=== PATIENT | female | born 1955 | race African-American/Black ===

== ENCOUNTER 2016-07-14 00:29 | Emergency (ER) | payer MEDICAID, MEDICARE ==
[~2016-07-14] VITALS: Ht 160 cm; Wt 80.3 kg
[~2016-07-14 00:29] MED LIST: ALPR0.25 PO; AMLO10TA2 PO; ASPI81TA9 PO; ATOR40TA59 PO; Benazepril PO; CARV12.52 PO; CLON0.1T PO; GABA-586 PO; HYDR-971 PO; Hydrochlorothiazide PO; INSU100I13 SQ; INSU100I17 SQ; INSU100V13 SQ; INSU100V5 SQ; LEVO150T5 PO; LISI40TA PO; METF10002 PO; METO25TA4 PO; PANT40TA5 PO; PIOG15TA21 PO; SIMV20TA3 PO; SUCR1TAB29 PO; [UNRECOGNIZED DRUG - OTHER] PO
[2016-07-14 01:01] LABS: BASO % 0 % (0-3); EOS % 2 % (0-3); HEMATOCRIT 36.9 % (36.0-47.0); LYMPH # 3.8 x10^3/uL (1.0-4.8); LYMPH % 35 % (24-48); MEAN CORPUSCULAR HEMOGLOBIN 27 pg (25-35); MEAN CORPUSCULAR HGB CONC 33 g/dL (31-37); MEAN CORPUSCULAR VOLUME 84 fL (79-100); MONO % 6 % (0-9); NEUT % 57 % (31-73); PLATELET COUNT 245 x10^3/uL (140-400); RED BLOOD COUNT 4.38 x10^6/uL (3.50-5.40); RED CELL DISTRIBUTION WIDTH 15.5 % (11.5-14.5); WHITE BLOOD COUNT 10.9 x10^3/uL (4.0-11.0)
[2016-07-14 01:06] VITALS: BP 209/96
--- NOTE | 2016-07-14 01:13 | EKG ---
[facility] [address] [place] [address] Test Date: 2016-07-14 Test Time: 00:56:21 Pat Name: JEFF GREGORY Department: Room: Gender: F Clinical Academic Allergist: : 1955 Requested By: FREDI TONEY Order Number: [id number] Reading MD: Measurements Intervals [place] Rate: 74 P: 54 CT: 124 QRS: 34 QRSD: 86 T: 152 QT: 418 QTc: 464 Interpretive Statements SINUS RHYTHM LVH WITH REPOLARIZATION ABNORMALITY QRS(T) CONTOUR ABNORMALITY CONSIDER ANTEROLATERAL MYOCARDIAL DAMAGE RI6.01 No previous ECG available for comparison
[2016-07-14 01:14] LABS: CREATININE 1.3 mg/dL (0.6-1.0); GFR 50.4; POTASSIUM 3.7 mmol/L (3.5-5.1)
[2016-07-14 01:42] LABS: BILIRUBIN,URINE NEGATIVE (NEG); GLUCOSE,URINE NEGATIVE (NEG); NITRITE,URINE NEGATIVE (NEG); PH,URINE 5.5; PROTEIN,URINE 100 mg/dL (NEG-TRACE)
[2016-07-14] MEDS ORDERED: IOHEXOL 300 MG/ML 75 ML VIAL ONE (01:42)
[2016-07-14] MEDS ORDERED: FENTANYL PF 100 MCG/2 ML VIAL. IV ONE (01:45)
[2016-07-14] MEDS ORDERED: IOHEXOL 300 MG/ML 75 ML VIAL IV ONE (01:45)
[2016-07-14] MEDS ORDERED: CONTRAST GIVEN MC PRN (01:45)
[2016-07-14 01:49] LABS: BACTERIA,URINE FEW /HPF (0-FEW); RBC,URINE OCC /HPF (0-2); SQUAMOUS EPITHELIAL CELL,UR FEW /LPF
--- NOTE | 2016-07-14 02:50 | RAD ---
CT abdomen and pelvis with contrast: Reason for examination: Abdominal pain with nausea and vomiting. Helical images were obtained through the abdomen pelvis with intravenous administration of 60 cc Omnipaque 300. Reconstruction was performed in sagittal and coronal planes. Exposure: One or more of the following individualized dose reduction techniques were used for this examination: 1. Automated exposure control. 2. Adjustment of the mA and/or kV according to patient size. 3. Use of iterative reconstruction technique. There is a calcified granuloma in the right middle lobe. Lung bases are otherwise clear. The heart size is normal with no pericardial effusion. No abnormalities seen at the liver, gallbladder, pancreas, adrenal glands or spleen. The kidneys show no renal masses, renal calculi, hydronephrosis or evidence of obstructive uropathy. No abnormalities seen in the appendix. There is a moderate amount of fecal material throughout the colon. There is no evidence of diverticulosis or diverticulitis. The small intestinal tract shows no abnormally dilated loops of bowel or thickened bowel montoya. No acute abnormalities seen in the stomach there is a large amount of gastric content. The abdominal aorta and inferior vena cava show no acute abnormalities. There is some arteriosclerotic vascular calcification present. No evidence of adenopathy is present. No abnormalities seen in the bladder. There is a calcifying nodule in the uterus consistent with a degenerating fibroid. No adnexal masses are seen. There are multiple calcifications in the pelvis consistent with phleboliths. Postop changes are seen at the L4-5 disc level. Postop changes are seen in the right hip. No acute bony abnormalities are evident. Impression: Calcifying nodule in the uterus consistent with a degenerating fibroid. No acute abnormalities in the abdomen or pelvis. Electronically signed by: Chanelle Grayson MD (Jul 14, 2016 02:47:56)
--- NOTE | 2016-07-14 03:02 | PHYS DOC ---
Past Medical History Past Medical History: Cancer, Diabetes-Type II, Hypertension, Hypothyroid, Other Additional Past Medical Histor: neuropathy, R breast cancer Past Surgical History: Tubal ligation, Other Additional Past Surgical Histo: right mastectomy, back surgery, right hip Alcohol Use: None Drug Use: None Adult General Chief Complaint Chief Complaint: ABDOMINAL PAIN HPI HPI 60-year-old female presents with significant generalized abdominal pain for the last day. She denies any nausea or vomiting. She states she's been able to eat and drink without difficulty. She rates her pain a 5 out of 10 on the pain scale. She denies any chest pain or shortness of breath. She denies any fever or chills. She denies any significant history of abdominal surgery. Patient does have history of hypertension and diabetes. Review of Systems Review of Systems Constitutional: Denies fever or chills [] Eyes: Denies change in visual acuity, redness, or eye pain [] HENT: Denies nasal congestion or sore throat [] Respiratory: Denies cough or shortness of breath [] Cardiovascular: No additional information not addressed in HPI [] GI: Has abdominal pain, denies nausea, denies vomiting, bloody stools or diarrhea [] : Denies dysuria or hematuria [] Musculoskeletal: Denies back pain or joint pain [] Integument: Denies rash or skin lesions [] Neurologic: Denies headache, focal weakness or sensory changes [] Endocrine: Denies polyuria or polydipsia [] Current Medications Current Medications Current Medications Medications (Trade) Dose Ordered Sig/[facility] Start Time Stop Time Status Last Admin Dose Admin Fentanyl Citrate (Fentanyl 2ml Vial) 50 mcg 1X ONCE 07/14/16 01:45 07/14/16 01:46 DC 07/14/16 02:00 50 MCG Info (Do NOT chart on this entry -- for MONITORING) 1 each PRN DAILY PRN 07/14/16 01:45 07/14/16 03:12 DC Iohexol (Omnipaque 300 Mg/ml) 75 ml STK-MED ONCE 07/14/16 01:42 07/14/16 01:43 DC Allergies Allergies Allergies Coded Allergies Type Severity Reaction Last Updated Verified No Known Drug Allergies 12/30/15 No Physical Exam Physical Exam Constitutional: Well developed, well nourished, no acute distress, non-toxic appearance. [] HENT: Normocephalic, atraumatic, bilateral external ears normal, oropharynx moist, no oral exudates, nose normal. [] Eyes: PERRLA, EOMI, conjunctiva normal, no discharge. [] Neck: Normal range of motion, no tenderness, supple, no stridor. [] Cardiovascular:Heart rate regular rhythm, no murmur [] Lungs & Thorax: Bilateral breath sounds clear to auscultation [] Abdomen: Bowel sounds normal, soft, mild generalized abdominal tenderness, no masses, no pulsatile masses. [] Skin: Warm, dry, no erythema, no rash. [] Back: No tenderness, no CVA tenderness. [] Extremities: No tenderness, no cyanosis, no clubbing, ROM intact, no edema. [] Neurologic: Alert and oriented X 3, normal motor function, normal sensory function, no focal deficits noted. [] Psychologic: Affect normal, judgement normal, mood normal. [] Current Patient Data Vital Signs Vital Signs Date Time Temp Pulse Resp B/P Pulse Ox O2 Delivery O2 Flow Rate FiO2 07/14/16 02:00 20 07/14/16 01:06 98.3 81 209/96 99 Room Air 98.3 Lab Values Laboratory Tests Test 07/14/16 00:52 07/14/16 01:29 White Blood Count 10.9x10^3/uL (4.0-11.0) Red Blood Count 4.38x10^6/uL (3.50-5.40) Hemoglobin 12.0g/dL (12.0-15.5) Hematocrit 36.9% (36.0-47.0) Mean Corpuscular Volume 84fL (79-100) Mean Corpuscular Hemoglobin 27pg (25-35) Mean Corpuscular Hemoglobin Concent 33g/dL (31-37) Red Cell Distribution Width 15.5% (11.5-14.5) H Platelet Count 245x10^3/uL (140-400) Neutrophils (%) (Auto) 57% (31-73) Lymphocytes (%) (Auto) 35% (24-48) Monocytes (%) (Auto) 6% (0-9) Eosinophils (%) (Auto) 2% (0-3) Basophils (%) (Auto) 0% (0-3) Neutrophils # (Auto) 6.2x10^3uL (1.8-7.7) Lymphocytes # (Auto) 3.8x10^3/uL (1.0-4.8) Monocytes # (Auto) 0.7x10^3/uL (0.0-1.1) Eosinophils # (Auto) 0.2x10^3/uL (0.0-0.7) Basophils # (Auto) 0.0x10^3/uL (0.0-0.2) Sodium Level 143mmol/L (136-145) Potassium Level 3.7mmol/L (3.5-5.1) Chloride Level 104mmol/L (98-107) Carbon Dioxide Level 27mmol/L (21-32) Anion Gap 12 (6-14) Blood Urea Nitrogen 33mg/dL (7-20) H Creatinine 1.3mg/dL (0.6-1.0) H Estimated GFR (Cockcroft-Gault) 50.4 Glucose Level 100mg/dL (70-99) H Calcium Level 9.0mg/dL (8.5-10.1) Troponin I Quantitative < 0.017ng/mL (0.000-0.055) Lipase 271U/L (73-393) Urine Collection Type Unknown Urine Color Yellow Urine Clarity Clear Urine pH 5.5 Urine Specific Fertile 1.010 Urine Protein 100mg/dL (NEG-TRACE) Urine Glucose (UA) Negativemg/dL (NEG) Urine Ketones (Stick) Negativemg/dL (NEG) Urine Blood Negative (NEG) Urine Nitrite Negative (NEG) Urine Bilirubin Negative (NEG) Urine Urobilinogen Dipstick 1.0mg/dL (0.2 mg/dL) Urine Leukocyte Esterase Negative (NEG) Urine RBC Occ/HPF (0-2) Urine WBC 1-4/HPF (0-4) Urine Squamous Epithelial Cells Few/LPF Urine Bacteria Few/HPF (0-FEW) Urine Hyaline Casts Few/HPF Urine Mucus Slight/LPF Laboratory Tests 07/14/16 00:52 Laboratory Tests 07/14/16 00:52 EKG EKG EKG as interpreted by me shows sinus rhythm with a rate of 74 bpm. There are no obvious ischemic findings though there are some ST segment flattening in 1 and 2 , V5 and V6. EKG does not meet STEMI criteria. Intervals are normal. Radiology/Procedures Radiology/Procedures CT abdomen and pelvis with contrast: Reason for examination: Abdominal pain with nausea and vomiting. Helical images were obtained through the abdomen pelvis with intravenous administration of 60 cc Omnipaque 300. Reconstruction was performed in sagittal and coronal planes. Exposure: One or more of the following individualized dose reduction techniques were used for this examination: 1. Automated exposure control. 2. Adjustment of the mA and/or kV according to patient size. 3. Use of iterative reconstruction technique. There is a calcified granuloma in the right middle lobe. Lung bases are otherwise clear. The heart size is normal with no pericardial effusion. No abnormalities seen at the liver, gallbladder, pancreas, adrenal glands or spleen. The kidneys show no renal masses, renal calculi, hydronephrosis or evidence of obstructive uropathy. No abnormalities seen in the appendix. There is a moderate amount of fecal material throughout the colon. There is no evidence of diverticulosis or diverticulitis. The small intestinal tract shows no abnormally dilated loops of bowel or thickened bowel montoya. No acute abnormalities seen in the stomach there is a large amount of gastric content. The abdominal aorta and inferior vena cava show no acute abnormalities. There is some arteriosclerotic vascular calcification present. No evidence of adenopathy is present. No abnormalities seen in the bladder. There is a calcifying nodule in the uterus consistent with a degenerating fibroid. No adnexal masses are seen. There are multiple calcifications in the pelvis consistent with phleboliths. Postop changes are seen at the L4-5 disc level. Postop changes are seen in the right hip. No acute bony abnormalities are evident. Impression: Calcifying nodule in the uterus consistent with a degenerating fibroid. No acute abnormalities in the abdomen or pelvis. Electronically signed by: Chanelle Grayson MD (Jul 14, 2016 02:47:56) Course & Med Decision Making Course & Med Decision Making Pertinent Labs and Imaging studies reviewed. (See chart for details) This 60-year-old female is having abdominal pain has CT of her abdomen and pelvis is nontender demonstrate an acute cause but did show a degenerating fibroid which could be related to her symptoms. Her laboratory workup was unremarkable. Her pain was well-controlled. I'll be sending her home with close follow-up and pain control. Dragon Disclaimer Dragon Disclaimer This electronic medical record was generated, in whole or in part, using a voice recognition dictation system. Departure Departure Impression: Primary Impression: Abdominal pain Additional Impression: Fibroid Disposition: 01 HOME, SELF-CARE Admitting Physician: Other Condition: STABLE Referrals: PHUC CEDEÑO MD (PCP) Patient Instructions: Abdominal Pain, [id number], Fibroids, [id number] Additional Instructions: Please take your pain medication as needed and follow up closely with your primary doctor in the next 2-3 days for your symptoms. Return to the ER if you develop any worsening of your symptoms. Scripts Hydrocodone/Apap 5-325 ([place] 5-325 Tablet)1 Each Tablet1 Tab PO PRN Q6HRS PRN PAIN #10 TAB Prov:FREDI TONEY DO 07/14/16 Problem Qualifiers FREDI TONEY DO Jul 14, 2016 03:02
[2016-07-14] MEDS ORDERED: HYDR-971 PO (03:06)
== END 2016-07-14 03:12 | disposition home or self-care (01) ==
LOC: ER 00:29
DX: D25.9 Leiomyoma of uterus, unspecified (principal); R10.84 Generalized abdominal pain; E11.40 Type 2 diabetes mellitus with diabetic neuropathy, unspecified; I10 Essential (primary) hypertension; E03.9 Hypothyroidism, unspecified; Z85.3 Personal history of malignant neoplasm of breast; Z98.51 Tubal ligation status
CPT/HCPCS: 36415; 74177; 80048; 81001; 83690; 84484; 85027; 93005; 96374; 99285; J3010; Q9967

== ENCOUNTER → 2016-08-16 | Outpatient (CLI) | payer BC, MEDICARE ==
[~2016-08-16] VITALS: Ht 160 cm; Wt 81.6 kg
[~2016-08-16] MED LIST changes: +SINCALIDE 1.63 MCG in IV NORMAL SALINE 50ML 30 ML IV ONE
--- NOTE | 2016-08-16 13:30 | RAD ---
Radionuclide hepatobiliary scan with gallbladder ejection fraction, 08/16/2016: History: Abdominal pain and bloating Following IV injection of 5.5 mCi of technetium 99m Choletec there was prompt uptake of the radionuclide from the blood stream by the liver. Activity is present in the bile ducts at 10 minutes and in the gallbladder at 15 minutes. Imaging obtained out to one hour showed increasing gallbladder activity without extension into the small bowel. Following IV injection of 5.0 mcg of cholecystokinin there is good gallbladder emptying. The gallbladder ejection fraction is 75%. Activity extends into the small bowel following the cholecystokinin injection. IMPRESSION: 1. No evidence of cystic duct or common bile duct obstruction. 2. The gallbladder ejection fraction is 75%.
== END | disposition home or self-care (01) ==
LOC: NM 10:02
PROVIDERS: ATTEND Internal Medicine Gastroenterology
DX: R10.9 Unspecified abdominal pain (principal); R14.0 Abdominal distension (gaseous)
CPT/HCPCS: 78226; 96374; 96375; A9537; J2805

== ENCOUNTER → 2016-09-21 | Outpatient (CLI) | payer BC, MEDICARE ==
[~2016-09-21] MED LIST changes: +METF-620 PO; -METF10002 PO; -SINCALIDE 1.63 MCG in IV NORMAL SALINE 50ML 30 ML IV ONE
--- NOTE | 2016-09-21 09:45 | RAD ---
Indication abdominal pain for 2 to 3 months. 2 mCi of technetium sulfur colloid was mixed with material simulating a solid meal. The time for half gastric emptying is estimated at approximately 10 hours. This is markedly delayed. IMPRESSION: Marked delay in gastric emptying
== END | disposition home or self-care (01) ==
LOC: NM 07:41
PROVIDERS: ATTEND Internal Medicine Gastroenterology
DX: K30 Functional dyspepsia (principal); E78.00 Pure hypercholesterolemia, unspecified; R93.1 Abnormal findings on diagnostic imaging of heart and coronary circulation
CPT/HCPCS: 78264; A9541

== ENCOUNTER 2017-03-07 08:05 | Emergency (ER) | payer MEDICARE ==
[~2017-03-07] VITALS: Ht 160 cm; Wt 81.2 kg
[~2017-03-07 08:05] MED LIST changes: +ASPI-612 PO; -ASPI81TA9 PO; -PIOG15TA21 PO; +PIOG15TA42 PO; -SUCR1TAB29 PO; +SUCR1TAB35 PO
--- NOTE | 2017-03-07 08:26 | PHYS DOC ---
Past Medical History Past Medical History: Cancer, Diabetes-Type II, Hypertension, Hypothyroid, Other Additional Past Medical Histor: neuropathy, R breast cancer Past Surgical History: Tubal ligation, Other Additional Past Surgical Histo: right mastectomy, back surgery, right hip Alcohol Use: None Drug Use: None Adult General Chief Complaint Chief Complaint: PAIN CONTROL HPI HPI Is a pleasant 61-year-old female with a history of chronic back pain on chronic narcotics for last year presents with back pain after mechanical fall from home. She is initially sustained his injury on Saturday night at her home. She lost her balance leading back twisting on her left flank. Saturday morning she was seen at [facility] ER for an evaluation of her abdominal pain. She had a CAT scan at this time she was told was negative for signs of infection, inflammation, fracture or intra-abdominal injury. Since that time she's had increasing pain over that left flank and her bottom. The pain is described as dull and achy it is worse with range of motion and direct pressure of the abdomen especially over the lower rib series. Patient denies any nausea, vomiting, diarrhea, constipation or other stooling changes. Patient denies any shortness of breath, chest pain, dizziness, lightheadedness especially change in posture standing. Patient pain is moderate in nature not improved with hydrocodone at home. Patient denies any trauma or abuse at home, denies any suicidal or homicidal ideations. She denies any numbness and tingling to the extremities below the injury. Review of Systems Review of Systems Constitutional: Denies fever or chills [] Eyes: Denies change in visual acuity, redness, or eye pain [] HENT: Denies nasal congestion or sore throat [] Respiratory: Denies cough or shortness of breath [] Cardiovascular: No additional information not addressed in HPI [] GI: He has abdominal pain over the left flank but no nausea no vomiting of bloody stools no diarrhea no constipation. : Denies dysuria or hematuria [] Musculoskeletal: Is chronic back pain chronic arthritis no new changes today. Integument: Denies rash or skin lesions [] Neurologic: Denies headache, focal weakness or sensory changes [] All other systems were reviewed and found to be within normal limits, except as documented in this note. Current Medications Current Medications Current Medications Medications (Trade) Dose Ordered Sig/[facility] Start Time Stop Time Status Last Admin Dose Admin Ketorolac Tromethamine (Toradol Im) 60 mg 1X ONCE 03/07/17 08:30 03/07/17 08:41 DC 03/07/17 09:03 60 MG Allergies Allergies Allergies Coded Allergies Type Severity Reaction Last Updated Verified No Known Drug Allergies 12/30/15 No Physical Exam Physical Exam Constitutional: Patient is mildly obese sitting quietly and comfortably although she is in some discomfort she is no acute distress. She is nontoxic in appearance. HENT: Normocephalic, atraumatic, bilateral external ears normal, oropharynx is clear with no oral lesions no bite rosado from a fall. The extremities are dry Eyes: PERRLA, EOMI, conjunctiva normal, no discharge. [] Neck: Normal range of motion, no tenderness, supple, no stridor. [] Cardiovascular:Heart rate regular rhythm, no murmur [] Lungs & Thorax: Bilateral breath sounds clear to auscultation [] Abdomen: She has significant tenderness to palpation over the left flank no external rosado no Owusu Brennan sign no Benz's or McBurney's point tenderness palpation. Patient is some voluntary guarding over her lower ribs with no obvious deformity. There is no evidence of flail chest Skin: Warm, dry, no erythema, no rash. No contusions or ecchymoses noted. No soft tissue swelling Back: She has a well-healed scar in the midline over L4 L5 with no specific tenderness to palpation or redness with warmth. Patient has tenderness to palpation over the sacrum with no obvious signs of trauma no soft tissue swelling. Extremities: No tenderness, no cyanosis, no clubbing, ROM intact, no edema. [] Neurologic: Alert and oriented X 3, normal motor function, normal sensory function, no focal deficits noted. [] Psychologic: Affect normal, judgement normal, mood normal. [] Current Patient Data Vital Signs Vital Signs Date Time Temp Pulse Resp B/P (MAP) Pulse Ox O2 Delivery O2 Flow Rate FiO2 03/07/17 08:30 97.8 83 22 196/92 (126) 98 Room Air 97.8 EKG EKG [] Radiology/Procedures Radiology/Procedures [] IMAGING REPORT Signed PATIENT: JEFF GREGORY ACCOUNT: [id number] : 1955 LOCATION: ER AGE: 61 SEX: F EXAM [id number] STATUS: PRE ER ORD. PHYSICIAN: ABRAHAM CAMARA MD REASON: fall from standing PROCEDURE: LUMBAR SPINE 2-3V; SACRUM & COCCYX 3V Lumbar spine, 3 views, 03/07/2017: History: Fall, pain Radiopaque disc spacers are present at the L4-5 level. There is moderate marginal spurring at that level. There is a mild chronic spondylolisthesis at L4-5, unchanged since CT images of 07/14/2016. The lumbar vertebral heights are well-maintained. There are additional scattered spurs in the upper lumbar spine. There are moderate degenerative changes involving the facet joints in the lower lumbar spine. No acute fracture is identified. Aortic calcific plaquing is present. IMPRESSION: 1. Postsurgical changes at L4-5 with a mild chronic spondylolisthesis. 2. Moderate scattered degenerative changes. 3. No acute lumbar spine abnormality is detected. Sacrococcygeal spine, 2 views, 03/07/2017: No fracture is identified. The presacral soft tissues are unremarkable. IMPRESSION: No acute bony abnormality is detected. DICTATED and SIGNED BY: SARAH DAVIS MD DATE: 03/07/17857 CC: ABARHAM CAMARA MD; PHUC CEDEÑO MD ~ Signed PATIENT: JEFF GREGORY ACCOUNT: [id number] : 1955 LOCATION: ER AGE: 61 SEX: F EXAM STATUS: REG ER ORD. PHYSICIAN: ABRAHAM CAMARA MD REASON: fall from standing PROCEDURE: RIBS LEFT AND PA CHEST PA chest and left rib series 03/07/2017 Clinical indication: Fall from standing. Comparison: Chest 12/28/2015 Findings: Cardiac and mediastinal silhouettes are unremarkable. Ovoid peripheral calcific density in the right upper lung likely related to dystrophic calcification. No pleural effusion, pneumothorax or focal consolidation. No acute displaced left rib fracture deformity identified. Impression: 1. No acute cardiopulmonary abnormality. 2. No acute displaced left rib fracture identified. DICTATED and SIGNED BY: JONA ZHOU MD DATE: 03/07/17858 CC: ABRAHAM CAMARA MD; PHUC CEDEÑO MD ~ Course & Med Decision Making Course & Med Decision Making Pertinent Labs and Imaging studies reviewed. (See chart for details) []She presents with a mechanical fall. I will attempt to obtain CT results from [facility] she had completed 2 days ago. Patient is resting comfortably I offered Toradol IM because she is driving home I did not feel comfortable having her use narcotics and driving her vehicle. Patient will also have a rib series completed and a sacral series completed to ensure that there is no sacral fracture no injury to her left ribs. Patient's rib series, sacral series and coccyx series of been reviewed by me read by radiology demonstrated no occult fracture no foreign body noted in the soft tissues. Time is now 9:45 AM patient presents with contusions to the hip and ribs with no obvious signs of fracture. She is feeling improved with Toradol IM she'll be sent home with Motrin and a muscle relaxant. Dragon Disclaimer Dragon Disclaimer This electronic medical record was generated, in whole or in part, using a voice recognition dictation system. Departure Departure Impression: Primary Impression: Abdominal pain Additional Impressions: HTN (hypertension) Rib contusion Sacral contusion Disposition: 01 HOME, SELF-CARE Condition: IMPROVED Referrals: PHUC CEDEÑO MD (PCP) Patient Instructions: Contusion, Rib Contusion Additional Instructions: discharge: I've spoken with the patient and/or caregivers. I've explained the patient's condition, diagnosis and treatment plan based on information available to me at this time. I've answered the patient's and/or caregivers questions and addressed any concerns. The patient and/or caregivers have a good understanding the patient's diagnosis, condition and treatment plan as can be expected at this point. Vital signs have been stabilized. The patient's condition is stable for discharge from the emergency department. The patient will pursue further outpatient evaluation with her primary care provider or other designated consulting physician as outlined in the discharge instructions. Patient and/or caregivers are agreeable to this plan of care and follow-up instructions have been explained in detail. The patient and/or caregivers have received these instructions in written format and expressed understanding of these discharge instructions. The patient and her caregivers are aware that if any significant change in condition or worsening of symptoms should prompt him to immediately return to this of the closest emergency department. If an emergent department is not readily available I would encourage him to call 911. Scripts Diazepam (VALIUM) 5 Mg Tablet 5 MG PO TID for MUSCLE SPASMS for 5 Days, #15 TAB Prov: ABRAHAM CAMARA MD 03/07/17 Ibuprofen (IBUPROFEN) 400 Mg Tablet 400 MG PO PRN Q6HRS Y for INFLAMMATION for 10 Days, TAB Prov: ABRAHAM CAMARA MD 03/07/17 Problem Qualifiers ABRAHAM CAMARA MD Mar 07, 2017 08:26
[2017-03-07] MEDS ORDERED: KETOROLAC 60 MG/2 ML INJ. IM ONE (08:30)
--- NOTE | 2017-03-07 09:06 | RAD ---
Lumbar spine, 3 views, 03/07/2017: History: Fall, pain Radiopaque disc spacers are present at the L4-5 level. There is moderate marginal spurring at that level. There is a mild chronic spondylolisthesis at L4-5, unchanged since CT images of 07/14/2016. The lumbar vertebral heights are well-maintained. There are additional scattered spurs in the upper lumbar spine. There are moderate degenerative changes involving the facet joints in the lower lumbar spine. No acute fracture is identified. Aortic calcific plaquing is present. IMPRESSION: 1. Postsurgical changes at L4-5 with a mild chronic spondylolisthesis. 2. Moderate scattered degenerative changes. 3. No acute lumbar spine abnormality is detected. Sacrococcygeal spine, 2 views, 03/07/2017: No fracture is identified. The presacral soft tissues are unremarkable. IMPRESSION: No acute bony abnormality is detected.
--- NOTE | 2017-03-07 09:07 | RAD ---
PA chest and left rib series 03/07/2017 Clinical indication: Fall from standing. Comparison: Chest 12/28/2015 Findings: Cardiac and mediastinal silhouettes are unremarkable. Ovoid peripheral calcific density in the right upper lung likely related to dystrophic calcification. No pleural effusion, pneumothorax or focal consolidation. No acute displaced left rib fracture deformity identified. Impression: 1. No acute cardiopulmonary abnormality. 2. No acute displaced left rib fracture identified.
[2017-03-07 09:30] VITALS: BP 169/87
[2017-03-07] MEDS ORDERED: DIAZ5TAB PO (09:49)
[2017-03-07] MEDS ORDERED: IBUP-1027 PO (09:49)
== END 2017-03-07 09:59 | disposition home or self-care (01) ==
LOC: ER 08:05
DX: S20.219A Contusion of unspecified front wall of thorax, initial encounter (principal); S30.0XXA Contusion of lower back and pelvis, initial encounter; S70.00XA Contusion of unspecified hip, initial encounter; I10 Essential (primary) hypertension; R10.9 Unspecified abdominal pain; E03.9 Hypothyroidism, unspecified; E11.40 Type 2 diabetes mellitus with diabetic neuropathy, unspecified; Z98.51 Tubal ligation status; G89.29 Other chronic pain; W18.30XA Fall on same level, unspecified, initial encounter; Y93.89 Activity, other specified; Y99.8 Other external cause status; Y92.89 Other specified places as the place of occurrence of the external cause
CPT/HCPCS: 71101; 72100; 72220; 96372; 99284; J1885

== ENCOUNTER 2017-09-18 15:23 | Inpatient (IN) | payer OTHER, MEDICARE ==
[2017-09-18] MEDS: IV NORMAL SALINE 1000ML BAG 1,000 ML IV ×2 (15:55→21:11)
[2017-09-18 16:05] LABS: ADD MAN DIFF? NO; BASO % 0 % (0-3); EOS # 0.2 x10^3/uL (0.0-0.7); EOS % 2 % (0-3); HEMATOCRIT 33.3 % (36.0-47.0); HEMOGLOBIN 11.5 g/dL (12.0-15.5); LYMPH # 3.5 x10^3/uL (1.0-4.8); LYMPH % 38 % (24-48); MEAN CORPUSCULAR HEMOGLOBIN 29 pg (25-35); MEAN CORPUSCULAR HGB CONC 35 g/dL (31-37); MEAN CORPUSCULAR VOLUME 85 fL (79-100); MONO # 0.7 x10^3/uL (0.0-1.1); MONO % 8 % (0-9); NEUT # 4.8 x10^3uL (1.8-7.7); NEUT % 52 % (31-73); PLATELET COUNT 225 x10^3/uL (140-400); RED BLOOD COUNT 3.93 x10^6/uL (3.50-5.40); RED CELL DISTRIBUTION WIDTH 14.9 % (11.5-14.5); WHITE BLOOD COUNT 9.3 x10^3/uL (4.0-11.0)
[2017-09-18 16:23] LABS: ANION GAP 10 (6-14); BLOOD UREA NITROGEN 52 mg/dL (7-20); BUN/CREATININE RATIO 25 (6-20); CALCIUM 8.4 mg/dL (8.5-10.1); CARBON DIOXIDE 27 mmol/L (21-32); CHLORIDE 108 mmol/L (98-107); CREATININE 2.1 mg/dL (0.6-1.0); GFR 28.9; GLUCOSE 96 mg/dL (70-99); POTASSIUM 3.9 mmol/L (3.5-5.1); SODIUM 145 mmol/L (136-145)
[2017-09-18 16:30] LABS: ALBUMIN 2.8 g/dL (3.4-5.0); ALBUMIN/GLOBULIN RATIO 0.7 (1.0-1.7); ALK PHOS 101 U/L (46-116); ALT (SGPT) 16 U/L (14-59); MAGNESIUM 2.4 mg/dL (1.8-2.4); TOTAL BILIRUBIN 0.2 mg/dL (0.2-1.0); TOTAL PROTEIN 6.8 g/dL (6.4-8.2)
[2017-09-18 16:31] LABS: TROPONINI < 0.017 ng/mL (0.000-0.055)
[2017-09-18 16:36] LABS: CKMB INDEX 0.8 % (0-4); CKMB MASS 1.1 ng/mL (0.0-3.6); CREATINE KINASE 139 U/L (26-192)
[2017-09-18 16:59] LABS: AST (SGOT) 19 U/L (15-37)
[2017-09-18] MEDS ORDERED: ONDANSETRON PF 4 MG/2 ML VIAL. IV (19:45)
[2017-09-18 19:55] LABS: ANION GAP 10 (6-14); BLOOD UREA NITROGEN 48 mg/dL (7-20); CALCIUM 7.8 mg/dL (8.5-10.1); CARBON DIOXIDE 26 mmol/L (21-32); CHLORIDE 109 mmol/L (98-107); CREATININE 1.9 mg/dL (0.6-1.0); GFR 32.4; GLUCOSE 151 mg/dL (70-99); POTASSIUM 3.9 mmol/L (3.5-5.1); SODIUM 145 mmol/L (136-145)
[2017-09-18] MEDS ORDERED: ALPRAZolam 0.25 MG TABLET PO (20:15)
[2017-09-18] MEDS ORDERED: HYDROcodone/APAP 5/325MG 1 TAB TABLET PO (20:15)
[2017-09-18] MEDS: CARVEDILOL 12.5 MG TABLET. PO ×2 (20:30→22:52)
[2017-09-18 20:53] LABS: POC GLUCOSE 136 mg/dL (70-99)
[2017-09-18] MEDS ORDERED: HYDROcodone/APAP 10/325 1 TAB TABLET PO (22:30)
[2017-09-18 22:52] LABS: POC GLUCOSE 219 mg/dL (70-99)
[2017-09-18] MEDS: diazePAM 5 MG TABLET PO (22:52)
[2017-09-18] MEDS: ATORVASTATIN CALCIUM 40 MG TABLET. PO (22:52)
[2017-09-18] MEDS: GABAPENTIN 300 MG CAPSULE. PO (22:52)
[2017-09-18] MEDS: INSULIN GLARGINE 300 UNITS/3 ML INSULN.PEN. SQ (23:00)
[2017-09-19] MEDS ORDERED: LEVOTHYROXINE 150 MCG TABLET PO (07:00)
[2017-09-19] MEDS ORDERED: INSULIN ASPART 24 UNIT SQ (07:30)
[2017-09-19] MEDS ORDERED: ASPIRIN ENTERIC COATED 81 MG TABLET.DR. PO (08:00)
[2017-09-19 08:28] LABS: POC GLUCOSE 214 mg/dL (70-99)
[2017-09-19] MEDS ORDERED: amLODIPine BESYLATE 10 MG TABLET PO (09:00)
[2017-09-19] MEDS: GABAPENTIN 300 MG CAPSULE. PO (09:00)
[2017-09-19] MEDS: IV NORMAL SALINE 1000ML BAG 1,000 ML IV ×2 (09:48→23:09)
[2017-09-19 09:50] LABS: FREE T4 0.87 ng/dL (0.76-1.46)
[2017-09-19 09:50] LABS: THYROID STIM HORMONE (TSH) 3.647 uIU/mL (0.358-3.74)
[2017-09-19] MEDS: cloNIDine HCL 0.1 MG TABLET PO (09:58)
[2017-09-19] MEDS: CHLORTHALIDONE 25 MG TABLET. PO (09:58)
[2017-09-19] MEDS: PANTOPRAZOLE 40 MG TABLET.DR. PO (09:58)
[2017-09-19] MEDS: PREGABALIN 25 MG CAPSULE PO ×3 (09:59→21:00)
[2017-09-19] MEDS: CARVEDILOL 12.5 MG TABLET. PO ×2 (09:59→16:01)
[2017-09-19] MEDS: diazePAM 5 MG TABLET PO ×3 (09:59→21:08)
[2017-09-19] MEDS: LEVOTHYROXINE 150 MCG TABLET PO (10:00)
[2017-09-19] MEDS: amLODIPine BESYLATE 10 MG TABLET PO (10:00)
[2017-09-19] MEDS: LINAGLIPTIN 5 MG TABLET PO (10:00)
[2017-09-19] MEDS: INSULIN LISPRO 300 UNITS/3 ML INSULN.PEN. SQ ×3 (10:04→16:01)
[2017-09-19 11:37] LABS: POC GLUCOSE 174 mg/dL (70-99)
[2017-09-19 14:03] LABS: ALBUMIN 2.6 g/dL (3.4-5.0); ANION GAP 9 (6-14); BLOOD UREA NITROGEN 37 mg/dL (7-20); CALCIUM 7.8 mg/dL (8.5-10.1); CARBON DIOXIDE 25 mmol/L (21-32); CHLORIDE 108 mmol/L (98-107); CREATININE 1.6 mg/dL (0.6-1.0); GFR 39.5; GLUCOSE 72 mg/dL (70-99); PHOSPHORUS 2.7 mg/dL (2.6-4.7); POTASSIUM 3.5 mmol/L (3.5-5.1); SODIUM 142 mmol/L (136-145)
[2017-09-19 16:40] LABS: POC GLUCOSE 56 mg/dL (70-99)
[2017-09-19] MEDS: DEXTROSE 50% 25 GM / 50ML DISP.SYRIN. IV (16:41)
[2017-09-19 16:49] LABS: POC GLUCOSE 148 mg/dL (70-99)
[2017-09-19 19:57] LABS: VITAMIN-B12 295 pg/mL (247-911)
[2017-09-19 20:57] LABS: POC GLUCOSE 152 mg/dL (70-99)
[2017-09-19] MEDS: ATORVASTATIN CALCIUM 40 MG TABLET. PO (21:08)
[2017-09-19] MEDS: QUEtiapine 25 MG TABLET. PO (21:09)
[2017-09-19] MEDS: INSULIN GLARGINE 300 UNITS/3 ML INSULN.PEN. SQ (21:20)
[2017-09-20 05:39] LABS: ANION GAP 10 (6-14); BLOOD UREA NITROGEN 35 mg/dL (7-20); CALCIUM 8.2 mg/dL (8.5-10.1); CARBON DIOXIDE 24 mmol/L (21-32); CHLORIDE 107 mmol/L (98-107); CREATININE 1.6 mg/dL (0.6-1.0); GFR 39.5; GLUCOSE 273 mg/dL (70-99); POTASSIUM 3.7 mmol/L (3.5-5.1); SODIUM 141 mmol/L (136-145)
[2017-09-20 05:51] LABS: CHOLESTEROL 205 mg/dL (0-200); HDLC 35 mg/dL (40-60); LDLC 101 mg/dL (0-100); NON-HDL CHOLESTEROL 170 mg/dL (0-129); TRIGLYCERIDES 345 mg/dL (0-150); VLDLC 69 mg/dL (0-40)
[2017-09-20 05:53] LABS: CHOLESTEROL/HDL RATIO 5.9
[2017-09-20] MEDS: LEVOTHYROXINE 150 MCG TABLET PO (06:08)
[2017-09-20 07:41] LABS: POC GLUCOSE 202 mg/dL (70-99)
[2017-09-20] MEDS: PANTOPRAZOLE 40 MG TABLET.DR. PO (08:14)
[2017-09-20] MEDS: cloNIDine HCL 0.1 MG TABLET PO (08:14)
[2017-09-20] MEDS: CHLORTHALIDONE 25 MG TABLET. PO (08:15)
[2017-09-20] MEDS: amLODIPine BESYLATE 10 MG TABLET PO (08:15)
[2017-09-20] MEDS: LINAGLIPTIN 5 MG TABLET PO (08:15)
[2017-09-20] MEDS: diazePAM 5 MG TABLET PO ×3 (08:15→20:47)
[2017-09-20] MEDS: PREGABALIN 25 MG CAPSULE PO ×3 (08:16→20:47)
[2017-09-20] MEDS: CARVEDILOL 12.5 MG TABLET. PO ×2 (08:16→17:29)
[2017-09-20 08:22] LABS: VITAMIN-B12 299 pg/mL (247-911)
[2017-09-20] MEDS: INSULIN LISPRO 300 UNITS/3 ML INSULN.PEN. SQ ×3 (08:22→17:00)
[2017-09-20] MEDS: IV NORMAL SALINE 1000ML BAG 1,000 ML IV (10:48)
[2017-09-20 11:40] LABS: POC GLUCOSE 69 mg/dL (70-99)
[2017-09-20 11:49] LABS: POC GLUCOSE 62 mg/dL (70-99)
[2017-09-20 12:23] LABS: POC GLUCOSE 48 mg/dL (70-99)
[2017-09-20] MEDS: DEXTROSE 50% 25 GM / 50ML DISP.SYRIN. IV (12:26)
[2017-09-20 12:43] LABS: POC GLUCOSE 158 mg/dL (70-99)
[2017-09-20 16:25] LABS: POC GLUCOSE 127 mg/dL (70-99)
[2017-09-20] MEDS: CALCIUM CARBONATE 500 MG TABLET PO (17:28)
[2017-09-20] MEDS: CHOLECALCIFEROL (VITAMIN D3) 5,000 UNIT CAPSULE PO (17:29)
[2017-09-20 20:28] LABS: POC GLUCOSE 156 mg/dL (70-99)
[2017-09-20] MEDS: QUEtiapine 25 MG TABLET. PO (20:47)
[2017-09-20] MEDS: ATORVASTATIN CALCIUM 40 MG TABLET. PO (20:47)
[2017-09-20] MEDS: INSULIN GLARGINE 300 UNITS/3 ML INSULN.PEN. SQ (20:53)
[2017-09-21] MEDS: IV NORMAL SALINE 1000ML BAG 1,000 ML IV ×2 (02:20→13:27)
[2017-09-21] MEDS: LEVOTHYROXINE 150 MCG TABLET PO (07:00)
[2017-09-21] MEDS: INSULIN LISPRO 300 UNITS/3 ML INSULN.PEN. SQ ×3 (08:00→17:00)
[2017-09-21 08:06] LABS: POC GLUCOSE 123 mg/dL (70-99)
[2017-09-21] MEDS: PANTOPRAZOLE 40 MG TABLET.DR. PO (08:33)
[2017-09-21] MEDS: amLODIPine BESYLATE 10 MG TABLET PO (08:33)
[2017-09-21] MEDS: cloNIDine HCL 0.1 MG TABLET PO (08:33)
[2017-09-21] MEDS: CALCIUM CARBONATE 500 MG TABLET PO (08:33)
[2017-09-21] MEDS: CHLORTHALIDONE 25 MG TABLET. PO (08:33)
[2017-09-21] MEDS: CHOLECALCIFEROL (VITAMIN D3) 5,000 UNIT CAPSULE PO (08:33)
[2017-09-21] MEDS: LINAGLIPTIN 5 MG TABLET PO (08:34)
[2017-09-21] MEDS: diazePAM 5 MG TABLET PO ×2 (08:34→13:28)
[2017-09-21] MEDS: CARVEDILOL 12.5 MG TABLET. PO ×2 (08:34→17:16)
[2017-09-21] MEDS: PREGABALIN 25 MG CAPSULE PO ×4 (08:34→22:36)
[2017-09-21 11:13] LABS: POC GLUCOSE 126 mg/dL (70-99)
[2017-09-21] MEDS: diazePAM 2 MG TABLET PO ×2 (16:30→21:00)
[2017-09-21] MEDS: metFORMIN 500 MG TABLET PO (17:16)
[2017-09-21] MEDS: ONDANSETRON PF 4 MG/2 ML VIAL. IV (20:43)
[2017-09-21] MEDS: ATORVASTATIN CALCIUM 40 MG TABLET. PO (21:00)
[2017-09-21] MEDS: QUEtiapine 25 MG TABLET. PO ×2 (21:00→22:36)
[2017-09-21] MEDS: OMEGA-3 FATTY ACIDS/FISH OIL 1,000 MG CAPSULE. PO (21:00)
[2017-09-21 21:21] LABS: POC GLUCOSE 128 mg/dL (70-99)
[2017-09-21 21:26] LABS: POC GLUCOSE 152 mg/dL (70-99)
[2017-09-21] MEDS: INSULIN GLARGINE 300 UNITS/3 ML INSULN.PEN. SQ (21:29)
[2017-09-22] MEDS: IV NORMAL SALINE 1000ML BAG 1,000 ML IV (02:40)
[2017-09-22] MEDS: PANTOPRAZOLE 40 MG TABLET.DR. PO (06:06)
[2017-09-22] MEDS: LEVOTHYROXINE 150 MCG TABLET PO (06:06)
[2017-09-22] MEDS: INSULIN LISPRO 300 UNITS/3 ML INSULN.PEN. SQ ×2 (08:00→12:00)
[2017-09-22 08:15] LABS: POC GLUCOSE 121 mg/dL (70-99)
[2017-09-22] MEDS: CALCIUM CARBONATE 500 MG TABLET PO (08:33)
[2017-09-22] MEDS: OMEGA-3 FATTY ACIDS/FISH OIL 1,000 MG CAPSULE. PO (08:33)
[2017-09-22] MEDS: CARVEDILOL 12.5 MG TABLET. PO (08:33)
[2017-09-22] MEDS: CHOLECALCIFEROL (VITAMIN D3) 5,000 UNIT CAPSULE PO (08:33)
[2017-09-22] MEDS: CHLORTHALIDONE 25 MG TABLET. PO (08:33)
[2017-09-22] MEDS: metFORMIN 500 MG TABLET PO (08:33)
[2017-09-22] MEDS: cloNIDine HCL 0.1 MG TABLET PO (08:33)
[2017-09-22] MEDS: amLODIPine BESYLATE 10 MG TABLET PO (08:34)
[2017-09-22] MEDS: diazePAM 2 MG TABLET PO ×2 (08:34→14:00)
[2017-09-22] MEDS: PREGABALIN 25 MG CAPSULE PO (08:41)
[2017-09-22 11:56] LABS: POC GLUCOSE 134 mg/dL (70-99)
[2017-09-25] MEDS ORDERED: ERGOCALCIFEROL (VITAMIN D2) 50,000 UNIT CAPSULE. PO (09:00)
== END 2017-09-22 14:50 | disposition home or self-care (01) | DRG 682 ==
LOC: ER 15:23 → 5 NORTH 18:59
DX: N17.9 Acute kidney failure, unspecified (principal); G93.41 Metabolic encephalopathy; E11.22 Type 2 diabetes mellitus with diabetic chronic kidney disease; E11.42 Type 2 diabetes mellitus with diabetic polyneuropathy; E11.649 Type 2 diabetes mellitus with hypoglycemia without coma; E11.65 Type 2 diabetes mellitus with hyperglycemia; D63.1 Anemia in chronic kidney disease; E03.9 Hypothyroidism, unspecified; E66.9 Obesity, unspecified; E78.5 Hyperlipidemia, unspecified; E83.51 Hypocalcemia; G89.29 Other chronic pain; I12.9 Hypertensive chronic kidney disease with stage 1 through stage 4 chronic kidney disease, or unspecified chronic kidney disease; M17.0 Bilateral primary osteoarthritis of knee; N18.9 Chronic kidney disease, unspecified; M19.90 Unspecified osteoarthritis, unspecified site; M54.5 Low back pain; Z68.31 Body mass index [BMI] 31.0-31.9, adult; Z79.4 Long term (current) use of insulin; Z80.3 Family history of malignant neoplasm of breast; Z82.3 Family history of stroke; Z82.49 Family history of ischemic heart disease and other diseases of the circulatory system; Z85.3 Personal history of malignant neoplasm of breast; Z90.11 Acquired absence of right breast and nipple; Z91.14 Patient's other noncompliance with medication regimen; Z92.21 Personal history of antineoplastic chemotherapy; Z92.3 Personal history of irradiation; Z98.51 Tubal ligation status
CPT/HCPCS: 36415; 70450; 71045; 76770; 80048; 80053; 80061; 80069; 82306; 82553; 82607; 82962; 83735; 84439; 84443; 84484; 85025; 93005; 93975; 95816; 96360; 97116-GP; 97162-GP; 97165-GO; 97530-GP; 97535-GO; 99285; 99285-25; J1815; J2405; J7030; J7042

== ENCOUNTER 2017-09-24 12:56 | Inpatient (IN) | payer OTHER ==
[2017-09-24 13:37] LABS: ADD MAN DIFF? NO
[2017-09-24 13:38] LABS: BASO # 0.1 x10^3/uL (0.0-0.2); BASO % 1 % (0-3); EOS # 0.2 x10^3/uL (0.0-0.7); EOS % 2 % (0-3); HEMATOCRIT 33.2 % (36.0-47.0); HEMOGLOBIN 11.2 g/dL (12.0-15.5); LYMPH # 3.3 x10^3/uL (1.0-4.8); LYMPH % 29 % (24-48); MEAN CORPUSCULAR HEMOGLOBIN 28 pg (25-35); MEAN CORPUSCULAR HGB CONC 34 g/dL (31-37); MEAN CORPUSCULAR VOLUME 84 fL (79-100); MONO # 0.7 x10^3/uL (0.0-1.1); MONO % 6 % (0-9); NEUT # 7.2 x10^3uL (1.8-7.7); NEUT % 63 % (31-73); PLATELET COUNT 253 x10^3/uL (140-400); RED BLOOD COUNT 3.97 x10^6/uL (3.50-5.40); RED CELL DISTRIBUTION WIDTH 15.4 % (11.5-14.5); WHITE BLOOD COUNT 11.5 x10^3/uL (4.0-11.0)
[2017-09-24 13:39] LABS: AGAP ISTAT 17 mmol/L (6-14); BUN ISTAT 25 mg/dL (8-26); CHLORIDE ISTAT 105 mmol/L (98-110); CREATININE ISTAT 1.6 mg/dL (0.5-1.4); GLUCOSE ISTAT 47 mg/dL (70-99); HEMATOCRIT ISTAT 31 % (36-40); HEMOGLOBIN ISTAT 10.5 g/dL (12-15); ION CA ISTAT 1.23 mmol/L (1.13-1.32); POTASSIUM ISTAT 3.5 mmol/L (3.5-5.0); SODIUM ISTAT 144 mmol/L (135-145); TOT CO2 ISTAT 27 mmol/L (23-32)
[2017-09-24 13:48] LABS: ANION GAP 9 (6-14); BLOOD UREA NITROGEN 26 mg/dL (7-20); BUN/CREATININE RATIO 15 (6-20); CALCIUM 9.1 mg/dL (8.5-10.1); CARBON DIOXIDE 29 mmol/L (21-32); CHLORIDE 106 mmol/L (98-107); CREATININE 1.7 mg/dL (0.6-1.0); GFR 36.8; GLUCOSE 50 mg/dL (70-99); INR 1.1 (0.8-1.1); PARTIAL THROMBOPLASTIN TIME 40 SEC (24-38); POTASSIUM 3.5 mmol/L (3.5-5.1); SODIUM 144 mmol/L (136-145)
[2017-09-24 13:54] LABS: ALBUMIN 3.1 g/dL (3.4-5.0); ALBUMIN/GLOBULIN RATIO 0.7 (1.0-1.7); ALK PHOS 112 U/L (46-116); ALT (SGPT) 15 U/L (14-59); AST (SGOT) 16 U/L (15-37); TOTAL BILIRUBIN 0.3 mg/dL (0.2-1.0); TOTAL PROTEIN 7.3 g/dL (6.4-8.2)
[2017-09-24 13:56] LABS: TROPONINI < 0.017 ng/mL (0.000-0.055)
[2017-09-24] MEDS ORDERED: DEXTROSE 50% 25 GM / 50ML DISP.SYRIN. IV (13:57)
[2017-09-24] MEDS: ASPIRIN 325 MG TABLET PO (14:02)
[2017-09-24 14:04] LABS: CKMB MASS 0.7 ng/mL (0.0-3.6); CREATINE KINASE 71 U/L (26-192)
[2017-09-24] MEDS: DEXTROSE 50% 25 GM / 50ML DISP.SYRIN. IV (14:04)
[2017-09-24] MEDS ORDERED: fentaNYL PF VIAL 100 MCG/2 ML VIAL IV (14:15)
[2017-09-24] MEDS ORDERED: ONDANSETRON PF 4 MG/2 ML VIAL. IV (14:15)
[2017-09-24 14:24] LABS: POC GLUCOSE 157 mg/dL (70-99)
[2017-09-24] MEDS: ACETAMINOPHEN 325 MG TABLET. PO (15:17)
[2017-09-24] MEDS ORDERED: ALPRAZolam 0.25 MG TABLET PO (17:45)
[2017-09-24] MEDS ORDERED: HYDROcodone/APAP 10/325 1 TAB TABLET PO (18:00)
[2017-09-24] MEDS: CARVEDILOL 12.5 MG TABLET. PO (18:09)
[2017-09-24 20:30] LABS: POC GLUCOSE 110 mg/dL (70-99)
[2017-09-24 20:44] LABS: TROPONINI < 0.017 ng/mL (0.000-0.055)
[2017-09-24] MEDS: ATORVASTATIN CALCIUM 40 MG TABLET. PO (21:32)
[2017-09-24] MEDS: cloNIDine HCL 0.1 MG TABLET PO (21:33)
[2017-09-24] MEDS: OMEGA-3 FATTY ACIDS/FISH OIL 1,000 MG CAPSULE. PO (21:33)
[2017-09-24] MEDS: ENOXAPARIN 40 MG/0.4 ML SYRINGE. SQ (21:34)
[2017-09-24] MEDS: QUEtiapine 25 MG TABLET. PO (21:34)
[2017-09-24] MEDS: PREGABALIN 25 MG CAPSULE PO (21:34)
[2017-09-24] MEDS: INSULIN GLARGINE 300 UNITS/3 ML INSULN.PEN. SQ (21:47)
[2017-09-25 05:31] LABS: ADD MAN DIFF? NO
[2017-09-25 05:49] LABS: BASO # 0.1 x10^3/uL (0.0-0.2); BASO % 1 % (0-3); EOS # 0.2 x10^3/uL (0.0-0.7); EOS % 2 % (0-3); HEMATOCRIT 30.3 % (36.0-47.0); HEMOGLOBIN 10.4 g/dL (12.0-15.5); LYMPH # 3.5 x10^3/uL (1.0-4.8); LYMPH % 39 % (24-48); MEAN CORPUSCULAR HEMOGLOBIN 29 pg (25-35); MEAN CORPUSCULAR HGB CONC 34 g/dL (31-37); MEAN CORPUSCULAR VOLUME 84 fL (79-100); MONO # 0.5 x10^3/uL (0.0-1.1); MONO % 6 % (0-9); NEUT # 4.8 x10^3uL (1.8-7.7); NEUT % 53 % (31-73); PLATELET COUNT 209 x10^3/uL (140-400); RED BLOOD COUNT 3.62 x10^6/uL (3.50-5.40); RED CELL DISTRIBUTION WIDTH 15.2 % (11.5-14.5); WHITE BLOOD COUNT 9.1 x10^3/uL (4.0-11.0)
[2017-09-25 06:02] LABS: ALBUMIN 2.6 g/dL (3.4-5.0); TOTAL PROTEIN 6.3 g/dL (6.4-8.2)
[2017-09-25 06:03] LABS: ALBUMIN/GLOBULIN RATIO 0.7 (1.0-1.7); ALK PHOS 103 U/L (46-116); ALT (SGPT) 14 U/L (14-59); ANION GAP 13 (6-14); AST (SGOT) 15 U/L (15-37); BLOOD UREA NITROGEN 28 mg/dL (7-20); BUN/CREATININE RATIO 16 (6-20); CALCIUM 8.6 mg/dL (8.5-10.1); CARBON DIOXIDE 26 mmol/L (21-32); CHLORIDE 104 mmol/L (98-107); CREATININE 1.8 mg/dL (0.6-1.0); GFR 34.5; GLUCOSE 71 mg/dL (70-99); POTASSIUM 3.1 mmol/L (3.5-5.1); SODIUM 143 mmol/L (136-145); TOTAL BILIRUBIN 0.2 mg/dL (0.2-1.0)
[2017-09-25] MEDS: LEVOTHYROXINE 150 MCG TABLET PO (07:15)
[2017-09-25 07:44] LABS: POC GLUCOSE 59 mg/dL (70-99)
[2017-09-25 07:44] LABS: POC GLUCOSE 40 mg/dL (70-99)
[2017-09-25] MEDS: cloNIDine HCL 0.1 MG TABLET PO (08:30)
[2017-09-25] MEDS: amLODIPine BESYLATE 10 MG TABLET PO (08:30)
[2017-09-25] MEDS: OMEGA-3 FATTY ACIDS/FISH OIL 1,000 MG CAPSULE. PO (08:31)
[2017-09-25] MEDS: PREGABALIN 25 MG CAPSULE PO (08:31)
[2017-09-25] MEDS: PANTOPRAZOLE 40 MG TABLET.DR. PO (08:33)
[2017-09-25] MEDS: ASPIRIN ENTERIC COATED 81 MG TABLET.DR. PO (08:33)
[2017-09-25] MEDS: CHLORTHALIDONE 25 MG TABLET. PO (08:33)
[2017-09-25] MEDS: LISINOPRIL 20 MG TABLET PO (08:34)
[2017-09-25] MEDS: CARVEDILOL 12.5 MG TABLET. PO (08:35)
[2017-09-25 08:40] LABS: POC GLUCOSE 71 mg/dL (70-99)
[2017-09-25 10:59] LABS: POC GLUCOSE 155 mg/dL (70-99)
[2017-09-25] MEDS ORDERED: INSULIN GLARGINE 300 UNITS/3 ML INSULN.PEN. SQ (21:00)
[2017-10-01] MEDS ORDERED: ERGOCALCIFEROL (VITAMIN D2) 50,000 UNIT CAPSULE. PO (09:00)
== END 2017-09-25 13:32 | disposition home or self-care (01) | DRG 637 ==
LOC: ER 12:56 → 5 SOUTH 13:57
DX: E11.649 Type 2 diabetes mellitus with hypoglycemia without coma (principal); G93.41 Metabolic encephalopathy; E11.22 Type 2 diabetes mellitus with diabetic chronic kidney disease; E11.40 Type 2 diabetes mellitus with diabetic neuropathy, unspecified; I13.0 Hypertensive heart and chronic kidney disease with heart failure and stage 1 through stage 4 chronic kidney disease, or unspecified chronic kidney disease; I50.30 Unspecified diastolic (congestive) heart failure; E03.9 Hypothyroidism, unspecified; E11.65 Type 2 diabetes mellitus with hyperglycemia; E78.5 Hyperlipidemia, unspecified; F43.9 Reaction to severe stress, unspecified; H40.9 Unspecified glaucoma; M19.90 Unspecified osteoarthritis, unspecified site; N18.9 Chronic kidney disease, unspecified; Z79.4 Long term (current) use of insulin; Z82.49 Family history of ischemic heart disease and other diseases of the circulatory system; Z83.3 Family history of diabetes mellitus; Z85.3 Personal history of malignant neoplasm of breast; Z86.73 Personal history of transient ischemic attack (TIA), and cerebral infarction without residual deficits; Z90.11 Acquired absence of right breast and nipple; Z95.1 Presence of aortocoronary bypass graft; Z96.649 Presence of unspecified artificial hip joint; F32.9 Major depressive disorder, single episode, unspecified; F41.9 Anxiety disorder, unspecified; K59.00 Constipation, unspecified; Z98.51 Tubal ligation status; M54.5 Low back pain; Z98.49 Cataract extraction status, unspecified eye; Z82.61 Family history of arthritis
CPT/HCPCS: 36415; 70450; 71045; 80047; 80053; 82553; 82962; 84484; 85025; 85610; 85730; 92610-GN; 93005; 93880; 96374; 99285; 99285-25; C8929; J1650; J1815; J7042

== ENCOUNTER 2019-03-28 07:22 | Emergency (ER) | payer MEDICARE, OTHER ==
[~2019-03-28] VITALS: Ht 160 cm; Wt 82.6 kg
[~2019-03-28 07:22] MED LIST changes: -AMLO10TA2 PO; +AMLO10TA8 PO; +CARV12.511 PO; -CARV12.52 PO; +CARV25TA2 PO; +CHLO50TA PO; +CLON0.1T12 PO; +DIAZ5TAB PO; +ERGO500027 PO; -GABA-586 PO; +GABA300C18 PO; +HYDR-2769 PO; +HYDR-3164 PO; -HYDR-971 PO; +IBUP-1027 PO; +INSU100C SQ; +INSU100I11 SQ; +INSU200I4 INJ; +LEVO150T PO; +LISI-130 PO; -LISI40TA PO; -METF-620 PO; +METF10007 PO; +METF500T16 PO; +OMEG1CAP6 PO; -PANT40TA5 PO; +PANT40TA77 PO; +PREG25CA PO; +Pantoprazole PO; +QUET25TA PO; +SIMV20TA18 PO; -SIMV20TA3 PO; +SITA100T PO
[2019-03-28] MEDS ORDERED: HYDROcodone/APAP 5/325MG 1 TAB TABLET PO ONE (08:00)
[2019-03-28] MEDS ORDERED: cloNIDine HCL 0.1 MG TABLET PO ONE (08:00)
[2019-03-28] MEDS ORDERED: ACETAMINOPHEN 325 MG TABLET. PO ONE (08:00)
--- NOTE | 2019-03-28 08:11 | PHYS DOC ---
Past Medical History Past Medical History: Cancer, Diabetes-Type II, Hypertension, Hypothyroid, Other Additional Past Medical Histor: neuropathy, R breast cancer Past Surgical History: Cancer Surgery, Tubal ligation, Other Additional Past Surgical Histo: right mastectomy, back surgery, right hip, L4- L5 surgery Alcohol Use: None Drug Use: None Adult General Chief Complaint Chief Complaint: SHORTNESS OF BREATH HPI HPI Patient is a 63 year old female patient with history of hypertension, hypothyroidism, diabetes mellitus who presents with complaint of cough and congestion. Patient complaining of subjective fever and nonproductive cough for the last 2 days with myalgias, chills, nausea, headache, earache, nasal congestion getting worse since yesterday. Patient rated her pain 8/10. 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 Patient states she didn't take her blood pressure and diabetes medication today. Patient had blood pressure of 196/93 at arrival to ER. Review of Systems Review of Systems Constitutional: Reports subjective fever and chills Eyes: Denies change in visual acuity, redness, or eye pain [] HENT: Reports nasal congestion and sore throat Respiratory: Reports cough and shortness of breath Cardiovascular: No additional information not addressed in HPI [] GI: Denies abdominal pain, vomiting, bloody stools or diarrhea [] : Denies dysuria or hematuria [] Musculoskeletal: Denies back pain or joint pain , reports myalgias[] Integument: Denies rash or skin lesions [] Neurologic: Denies focal weakness or sensory changes , reports headache[] Endocrine: Denies polyuria or polydipsia [] All other systems were reviewed and found to be within normal limits, except as documented in this note. Current Medications Current Medications Current Medications Medications (Trade) Dose Ordered Sig/Kurt Start Time Stop Time Status Last Admin Dose Admin Acetaminophen (Tylenol) 650 mg 1X ONCE 03/28/19 08:00 03/28/19 08:01 DC 03/28/19 07:59 650 MG Acetaminophen/ Hydrocodone Bitart (Lortab 5/325) 1 tab 1X ONCE 03/28/19 08:00 03/28/19 08:01 DC 03/28/19 08:00 1 TAB Albuterol/ Ipratropium (Duoneb) 3 ml 1X ONCE 03/28/19 08:45 03/28/19 08:46 DC 03/28/19 08:59 3 ML Clonidine HCl (Catapres) 0.1 mg 1X ONCE 03/28/19 08:00 03/28/19 08:01 DC 03/28/19 08:00 0.1 MG Hydralazine HCl (Apresoline Inj) 10 mg 1X ONCE 03/28/19 09:15 03/28/19 09:16 DC Methylprednisolone Sodium Succinate (SOLU-Medrol 125MG VIAL) 125 mg 1X ONCE 03/28/19 09:15 03/28/19 09:16 DC 03/28/19 09:50 125 MG Allergies Allergies Allergies Coded Allergies Type Severity Reaction Last Updated Verified No Known Drug Allergies 12/30/15 No Physical Exam Physical Exam Constitutional: Well developed, well nourished, mild distress, non-toxic appearance, temperature 100.4. [] HENT: Normocephalic, atraumatic, bilateral external ears normal, oropharynx moist, pharyngeal erythema ,no oral exudates, nasal congestion. [] Eyes: PERRLA, EOMI, conjunctiva normal, no discharge. [] Neck: Normal range of motion, no tenderness, supple, no stridor. [] Cardiovascular:Heart rate regular rhythm, no murmur [] Lungs & Thorax: Bilateral breath sounds clear to auscultation [] Abdomen: Bowel sounds normal, soft, no tenderness, no masses, no pulsatile masses. [] Skin: Warm, dry, no erythema, no rash. [] Back: No tenderness, no CVA tenderness. [] Extremities: No tenderness, no cyanosis, no clubbing, ROM intact, no edema. [] Neurologic: Alert and oriented X 3, normal motor function, normal sensory f unction, no focal deficits noted. [] Psychologic: Affect normal, judgement normal, mood normal. [] Current Patient Data Vital Signs Vital Signs Date Time Temp Pulse Resp B/P (MAP) Pulse Ox O2 Delivery O2 Flow Rate FiO2 03/28/19 09:50 78 136/78 03/28/19 09:00 99 Room Air 03/28/19 07:30 100.4 22 100.4 Lab Values Laboratory Tests Test 03/28/19 07:40 03/28/19 09:30 Influenza Type A Antigen Negative (NEGATIVE) Influenza Type B Antigen Negative (NEGATIVE) White Blood Count 9.5 x10^3/uL (4.0-11.0) Red Blood Count 3.50 x10^6/uL (3.50-5.40) Hemoglobin 9.8 g/dL (12.0-15.5) L Hematocrit 29.1 % (36.0-47.0) L Mean Corpuscular Volume 83 fL (79-100) Mean Corpuscular Hemoglobin 28 pg (25-35) Mean Corpuscular Hemoglobin Concent 34 g/dL (31-37) Red Cell Distribution Width 15.8 % (11.5-14.5) H Platelet Count 192 x10^3/uL (140-400) Neutrophils (%) (Auto) 62 % (31-73) Lymphocytes (%) (Auto) 27 % (24-48) Monocytes (%) (Auto) 8 % (0-9) Eosinophils (%) (Auto) 2 % (0-3) Basophils (%) (Auto) 0 % (0-3) Neutrophils # (Auto) 5.9 x10^3/uL (1.8-7.7) Lymphocytes # (Auto) 2.6 x10^3/uL (1.0-4.8) Monocytes # (Auto) 0.8 x10^3/uL (0.0-1.1) Eosinophils # (Auto) 0.2 x10^3/uL (0.0-0.7) Basophils # (Auto) 0.0 x10^3/uL (0.0-0.2) Sodium Level 141 mmol/L (136-145) Potassium Level 3.8 mmol/L (3.5-5.1) Chloride Level 105 mmol/L (98-107) Carbon Dioxide Level 27 mmol/L (21-32) Anion Gap 9 (6-14) Blood Urea Nitrogen 46 mg/dL (7-20) H Creatinine 2.9 mg/dL (0.6-1.0) H Estimated GFR (Cockcroft-Gault) 19.8 BUN/Creatinine Ratio 16 (6-20) Glucose Level 239 mg/dL (70-99) H Lactic Acid Level 0.8 mmol/L (0.4-2.0) Calcium Level 8.4 mg/dL (8.5-10.1) L Total Bilirubin 0.4 mg/dL (0.2-1.0) Aspartate Amino Transferase (AST) 17 U/L (15-37) Alanine Aminotransferase (ALT) 14 U/L (14-59) Alkaline Phosphatase 125 U/L (46-116) H Creatine Kinase 215 U/L (26-192) H Troponin I Quantitative 0.023 ng/mL (0.000-0.055) LB-Iqz-Q-Type Natriuretic Peptide 448 pg/mL (0-124) H Total Protein 7.2 g/dL (6.4-8.2) Albumin 2.9 g/dL (3.4-5.0) L Albumin/Globulin Ratio 0.7 (1.0-1.7) L Laboratory Tests 03/28/19 09:30 Laboratory Tests 03/28/19 09:30 EKG EKG [] Radiology/Procedures Radiology/Procedures [][facility] [address] [place] [address] IMAGING REPORT Signed PATIENT: JEFF GREGORY ACCOUNT: [id number] : 1955 LOCATION: ER AGE: 63 SEX: F EXAM STATUS: REG ER ORD. PHYSICIAN: KYLE JOEL MD REASON: cough and shortness of breath PROCEDURE: CHEST PA & LATERAL Chest PA and lateral: Reason for examination: Cough and shortness of breath. Comparison is made to previous study dated 09/24/2017. The heart size is normal. Mediastinum is unremarkable. Lung cope are clear. No acute bony abnormalities are seen. Impression: No acute cardiopulmonary disease. Electronically signed by: Gilbert Lowery MD (03/28/2019 9:02 AM) [facility] DICTATED and SIGNED BY: GILBERT LOWERY MD DATE: 03/28/19901 Course & Med Decision Making Course & Med Decision Making Pertinent Labs and Imaging studies reviewed. (See chart for details) Evaluation of patient in ER showed 63-year-old female patient with history of diabetes mellitus and hypertension and complaining of flulike symptoms for 3 days and fever of 100.4. Patient had negative flu test. Patient had patient blood pressures that gradually decreased with treatment. Labs showed normal white count and lactic acid with chronic elevation of renal function tests and hyperglycemia. Patient felt better with treatment in ER. Chest x-ray was unremarkable. Patient was advised to increase fluid intake and continue home medication. Dragon Disclaimer Dragon Disclaimer This electronic medical record was generated, in whole or in part, using a voice recognition dictation system. Departure Departure Impression: Primary Impression: Upper respiratory infection Additional Impressions: Accelerated hypertension Chronic anemia Chronic renal insufficiency Uncontrolled diabetes mellitus Alkaline phosphatase elevation Fever Disposition: HOME, SELF-CARE (at 1022) Condition: IMPROVED Referrals: JEN CRUZ (PCP) Patient Instructions: Diet - 2000 Calorie Diabetic, Fever, Form - Blood Pressure Record Sheet, How to Take Your Blood Pressure, [id number], Managing Your High Blood Pressure, Upper Respiratory Infection, Adult Additional Instructions: Drink plenty of liquids Follow-up with your primary care physician in 2-3 days Return to ER if not getting better Scripts Hydrocodone/Apap 5-325 (NORCO 5-325 TABLET) 1 Each Tablet 1 TAB PO PRN Q6HRS PRN for PAIN, #10 TAB 0 Refills Prov: KYLE JOEL MD 03/28/19 Azithromycin (ZITHROMAX) 250 Mg Tablet 250 MG PO as directed for ANTI-BIOTIC, #6 TAB 0 Refills Take 2 PO x 1 days Then take 1 PO q 24 hour for the next 4 days Prov: KYLE JOEL MD 03/28/19 Benzonatate (TESSALON PERLE) 100 Mg Capsule 1 CAP PO TID for cough, #21 CAP Prov: KYLE JOEL MD 03/28/19 Albuterol Sulfate (PROAIR HFA INHALER) 8.5 Gm Hfa.aer.ad 2 PUFF IH PRN Q4-6HRS PRN for wheezing for 21 Days, #1 INHALER 0 Refills Prov: KYLE JOEL MD 03/28/19 Problem Qualifiers Primary Impression: Upper respiratory infection URI type: unspecified URI Qualified Codes: J06.9 - Acute upper respiratory infection, unspecified Additional Impressions: Chronic renal insufficiency Chronic kidney disease stage: unspecified stage Qualified Codes: N18.9 - Chronic kidney disease, unspecified Uncontrolled diabetes mellitus Diabetes mellitus type: other specified (including CIRO) Glycemic state: with hyperglycemia Qualified Codes: E13.65 - Other specified diabetes me llitus with hyperglycemia Fever Fever type: unspecified Qualified Codes: R50.9 - Fever, unspecified KYLE JOEL MD Mar 28, 2019 08:11
[2019-03-28 08:27] LABS: INFLUENZA A PATIENT NEGATIVE (NEGATIVE); INFLUENZA B PATIENT NEGATIVE (NEGATIVE)
[2019-03-28] MEDS ORDERED: IPRATRPIUM/ALBUTEROL 0.5/2.5MG 3 ML NEBU. NEB ONE (08:45)
--- NOTE | 2019-03-28 09:05 | RAD ---
Chest PA and lateral: Reason for examination: Cough and shortness of breath. Comparison is made to previous study dated 09/24/2017. The heart size is normal. Mediastinum is unremarkable. Lung cope are clear. No acute bony abnormalities are seen. Impression: No acute cardiopulmonary disease. Electronically signed by: Ashlee Grayson MD (03/28/2019 9:02 AM) [facility]
[2019-03-28] MEDS ORDERED: methylPREDNISolone SOD SUCC PF 125 MG/2 ML VIAL. IV ONE (09:15)
[2019-03-28] MEDS ORDERED: hydrALAZINE 20 MG/ML VIAL. IVP ONE (09:15)
[2019-03-28 09:53] LABS: BASO % 0 % (0-3); EOS # 0.2 x10^3/uL (0.0-0.7); EOS % 2 % (0-3); HEMATOCRIT 29.1 % (36.0-47.0); HEMOGLOBIN 9.8 g/dL (12.0-15.5); LYMPH # 2.6 x10^3/uL (1.0-4.8); LYMPH % 27 % (24-48); MEAN CORPUSCULAR HEMOGLOBIN 28 pg (25-35); MEAN CORPUSCULAR HGB CONC 34 g/dL (31-37); MEAN CORPUSCULAR VOLUME 83 fL (79-100); MONO # 0.8 x10^3/uL (0.0-1.1); MONO % 8 % (0-9); NEUT # 5.9 x10^3/uL (1.8-7.7); NEUT % 62 % (31-73); PLATELET COUNT 192 x10^3/uL (140-400); RED CELL DISTRIBUTION WIDTH 15.8 % (11.5-14.5); WHITE BLOOD COUNT 9.5 x10^3/uL (4.0-11.0)
[2019-03-28 10:02] LABS: CALCIUM 8.4 mg/dL (8.5-10.1); CREATININE 2.9 mg/dL (0.6-1.0); GFR 19.8; POTASSIUM 3.8 mmol/L (3.5-5.1)
[2019-03-28 10:09] LABS: ALBUMIN 2.9 g/dL (3.4-5.0); ALBUMIN/GLOBULIN RATIO 0.7 (1.0-1.7); TOTAL BILIRUBIN 0.4 mg/dL (0.2-1.0); TOTAL PROTEIN 7.2 g/dL (6.4-8.2)
[2019-03-28] MEDS ORDERED: BENZ100C PO (10:25)
[2019-03-28] MEDS ORDERED: ALBU2.5V8 IH (10:25)
[2019-03-28] MEDS ORDERED: AZIT250T PO (10:25)
[2019-03-28] MEDS ORDERED: HYDR-3164 PO (10:28)
[2019-03-28] MEDS ORDERED: cefTRIAXone IV Push 1 GM VIAL. IVP ONE (10:30)
[2019-03-28 11:00] VITALS: BP 136/79
== END 2019-03-28 11:32 | disposition home or self-care (01) ==
LOC: ER 07:22
DX: J06.9 Acute upper respiratory infection, unspecified (principal); E11.22 Type 2 diabetes mellitus with diabetic chronic kidney disease; I12.9 Hypertensive chronic kidney disease with stage 1 through stage 4 chronic kidney disease, or unspecified chronic kidney disease; N18.9 Chronic kidney disease, unspecified; E11.65 Type 2 diabetes mellitus with hyperglycemia; I10 Essential (primary) hypertension; E03.9 Hypothyroidism, unspecified; E11.40 Type 2 diabetes mellitus with diabetic neuropathy, unspecified; D64.89 Other specified anemias; R74.8 Abnormal levels of other serum enzymes
CPT/HCPCS: 36415; 71046; 80053; 82550; 82962; 83605; 83880; 84484; 85025; 87040; 87804; 94640; 96374; 96375; 99285; J0696; J2930; J7620

== ENCOUNTER 2019-09-21 20:56 | Emergency (ER) | payer MEDICARE ==
[~2019-09-21] VITALS: Ht 160 cm; Wt 81.8 kg
[~2019-09-21 20:56] MED LIST changes: +ALBU2.5V8 IH; +AZIT250T PO; +BENZ100C PO; +DOCU-153 PO; +LOSA50TA15; -PREG25CA PO; +PREG25CA41 PO
[2019-09-21 21:15] VITALS: BP 173/81
[2019-09-21] MEDS ORDERED: HYDROcodone/APAP 5/325MG 1 TAB TABLET PO ONE (21:30)
[2019-09-21] MEDS ORDERED: CYCLOBENZAPRINE 10 MG TABLET. PO ONE (21:30)
[2019-09-21] MEDS ORDERED: DICL50TA4 PO (21:47)
[2019-09-21] MEDS ORDERED: ORPH100T PO (21:47)
[2019-09-21] MEDS ORDERED: HYDR-3164 PO (21:47)
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
== END 2019-09-21 21:51 | disposition home or self-care (01) ==
LOC: ER 20:56
DX: S16.1XXA Strain of muscle, fascia and tendon at neck level, initial encounter (principal); S39.012A Strain of muscle, fascia and tendon of lower back, initial encounter; E11.40 Type 2 diabetes mellitus with diabetic neuropathy, unspecified; I10 Essential (primary) hypertension; E03.9 Hypothyroidism, unspecified; Z98.51 Tubal ligation status; V49.59XA Passenger injured in collision with other motor vehicles in traffic accident, initial encounter; Y92.488 Other paved roadways as the place of occurrence of the external cause; Y93.89 Activity, other specified; Y99.8 Other external cause status
CPT/HCPCS: 99283

== ENCOUNTER 2020-08-21 02:45 | Observation (INO) | payer MEDICARE, OTHER ==
[~2020-08-21] VITALS: Ht 161.3 cm; Wt 89.1 kg
[~2020-08-21 02:45] MED LIST changes: +AMLO-187 PO; -AMLO10TA8 PO; -ASPI-612 PO; +ASPI-886 PO; +DICL50TA4 PO; +ORPH100T PO
--- NOTE | 2020-08-21 03:09 | PHYS DOC ---
Past Medical History Past Medical History: Cancer, Diabetes-Type II, Hypertension, Hypothyroid, Other Additional Past Medical Histor: neuropathy, R breast cancer Past Surgical History: Cancer Surgery, Tubal ligation, Other Additional Past Surgical Histo: right mastectomy, back surgery, right hip, L4- L5 surgery Smoking Status: Never Smoker Alcohol Use: None Drug Use: None General Adult EDM: Chief Complaint: MULTIPLE COMPLAINTS HPI: HPI: Patient is a 64-year-old female presenting via POV for multiple complaints. She is a poor historian. States she started developing URI-like symptoms 48 hours ago without known sick contacts or COVID-19 exposure, later admits she has received both COVID-19 vaccine doses. States since symptom onset, she has experienced generalized fatigue, nausea, suprapubic pain and discomfort with urination, and"10-20" episodes of nonbloody nonbilious emesis that has increased in frequency in the past 24 hours. Reports last meal consumed was home-cooked fish approximately 15 hours prior to arrival, patient reports this exacerbated her symptoms. Has had minimal p.o. intake in the past 12 hours. No known fever, chest pain, shortness of breath, changes in motor or sensory function, no neurologic changes. Review of Systems: Review of Systems: Fourteen body systems of review of systems have been reviewed. See HPI for pertinent positives and negative responses, other mejía all other systems are negative, non-pertinent or non-contributory Heart Score: C/O Chest Pain: No HEART Score for Chest Pain: HEART Score for Chest Pain Response (Comments) Value History Slighlty/Non-Suspicious 0 ECG Nonspecific Repolarizatio 1 Age >45 - < 65 1 Risk Factors >3 Risk Factors or Hx CAD 2 Troponin < Normal Limit 0 Total 4 Risk Factors: Risk Factors: DM, Current or recent (<one month) smoker, HTN, HLP, family history of CAD, obesity. Risk Scores: Score 0 - 3: 2.5% MACE over next 6 weeks - Discharge Home Score 4 - 6: 20.3% MACE over next 6 weeks - Admit for Clinical Observation Score 7 - 10: 72.7% MACE over next 6 weeks - Early Invasive Strategies Allergies: Allergies: Allergies Coded Allergies Type Severity Reaction Last Updated Verified No Known Drug Allergies 12/30/15 No Physical Exam: PE: General: Appears well, non toxic, and comfortable Skin: Warm, dry. Normal for ethnicity. HEENT: Atraumatic. PERRLA. Rhinorrhea and congestion. Nasal turbinates boggy b/l. Moist mucous membranes. Uvula midline. Maintaining secretions. No phonation changes. Neck: Trachea midline. Normal ROM. No stridor. Respiratory: Normal WOB. CTAB w/o w/r/r. No tachypnea. Cardiovascular: Regular rate and rhythm. Normal peripheral perfusion. Abdomen: Soft.Suprapubic tenderness on palpations. No distension. Back: Normal ROM. Musculoskeletal: No swelling or deformity. Neuro: Alert and oriented x 4. MAEE. Lymph: No cervical LAD. Psych: Normal affect and mood. Current Patient Data: Labs: Laboratory Tests Test 08/21/20 03:10 08/21/20 03:30 Urine Collection Type Unknown Urine Color Yellow Urine Clarity Clear Urine pH 6.5 Urine Specific Ault 1.020 Urine Protein >=300 mg/dL Urine Glucose (UA) 250 mg/dL Urine Ketones (Stick) Negative mg/dL Urine Blood Negative Urine Nitrite Negative Urine Bilirubin Negative Urine Urobilinogen Dipstick 0.2 mg/dL Urine Leukocyte Esterase Small Urine RBC Occ /HPF Urine WBC 11-20 /HPF Urine Squamous Epithelial Cells Mod /LPF Urine Bacteria Few /HPF Urine Mucus Slight /LPF Urine Trichomonas Present White Blood Count 16.2 x10^3/uL Red Blood Count 3.82 x10^6/uL Hemoglobin 10.9 g/dL Hematocrit 33.1 % Mean Corpuscular Volume 87 fL Mean Corpuscular Hemoglobin 28 pg Mean Corpuscular Hemoglobin Concent 33 g/dL Red Cell Distribution Width 15.9 % Platelet Count 271 x10^3/uL Neutrophils (%) (Auto) 82 % Lymphocytes (%) (Auto) 13 % Monocytes (%) (Auto) 4 % Eosinophils (%) (Auto) 1 % Basophils (%) (Auto) 1 % Neutrophils # (Auto) 13.3 x10^3/uL Lymphocytes # (Auto) 2.0 x10^3/uL Monocytes # (Auto) 0.6 x10^3/uL Eosinophils # (Auto) 0.1 x10^3/uL Basophils # (Auto) 0.1 x10^3/uL Segmented Neutrophils % 90 % Lymphocytes % 8 % Monocytes % 1 % Eosinophils % 1 % Platelet Estimate Adequate Hypochromasia Slight Ovalocytes Occ Crenated Cell Present Sodium Level 145 mmol/L Potassium Level 4.0 mmol/L Chloride Level 111 mmol/L Carbon Dioxide Level 25 mmol/L Anion Gap 9 Blood Urea Nitrogen 39 mg/dL Creatinine 3.0 mg/dL Estimated GFR (Cockcroft-Gault) 19.0 BUN/Creatinine Ratio 13 Glucose Level 218 mg/dL Lactic Acid Level 0.8 mmol/L Calcium Level 8.5 mg/dL Total Bilirubin 0.5 mg/dL Aspartate Amino Transf (AST/SGOT) 19 U/L Alanine Aminotransferase (ALT/SGPT) 16 U/L Alkaline Phosphatase 146 U/L Troponin I Quantitative 0.026 ng/mL YI-Kem-T-Type Natriuretic Peptide 1443 pg/mL Total Protein 7.3 g/dL Albumin 3.2 g/dL Albumin/Globulin Ratio 0.8 Current Medications Medications (Trade) Dose Ordered Sig/Kurt Route PRN Reason Start Time Stop Time Status Last Admin Dose Admin Sodium Chloride 1,000 ml @ 0 mls/hr 1X ONCE IV 08/21/20 04:00 08/21/20 04:01 DC 08/21/20 04:28 Ceftriaxone Sodium (Rocephin) 1 gm 1X ONCE IVP 08/21/20 04:00 08/21/20 04:01 DC 08/21/20 04:31 Metronidazole 100 ml @ 100 mls/hr Q12HR IV 08/21/20 04:07 08/21/20 04:31 Clonidine HCl (Catapres) 0.1 mg 1X ONCE PO 08/21/20 04:15 08/21/20 04:39 DC Acetaminophen (Tylenol) 650 mg PRN Q4HRS PRN PO FEVER > 100.3'F 08/21/20 04:45 08/22/20 04:44 Vital Signs: Vital Signs Date Time Temp Pulse Resp B/P (MAP) Pulse Ox O2 Delivery O2 Flow Rate FiO2 08/21/20 02:48 98.8 106 20 218/96 (136) 100 Room Air 98.8 Vital Signs Date Time Temp Pulse Resp B/P (MAP) Pulse Ox O2 Delivery O2 Flow Rate FiO2 08/21/20 04:41 75 18 152/77 (102) 100 Room Air 08/21/20 02:48 98.8 98.8 EKG: EKG: EKG ordered and interpreted by myself at 0320 hrs. as sinus rhythm at 94 bpm, prolonged QTC at 511 otherwise unremarkable intervals, no axis deviation, T wave inversions noted in lead I, aVL, and V6. No STEMI Prior EKG reviewed that was obtained 05/30/2019 by myself, showed sinus rhythm at 85 bpm, prolonged QTC at 494 otherwise unremarkable intervals, no axis deviation, nonspecific T wave abnormalities in V5 and V6, T wave inversions noted in lead I and aVF are new Radiology/Procedures: Radiology/Procedures: INDICATION: Reason: shob / Spl. Instructions: / History: COMPARISON: March 2019 FINDINGS: Single view of chest obtained. Cardiomediastinal silhouette is prominent in size but similar to prior. There is repeat demonstration of opacity at the right upper chest but this was also present on prior. There are some calcified granulomas as well. A definite new region of consolidation is not seen IMPRESSION: * No definite new region of consolidation. Repeat demonstration of focal opacity at the right upper chest with associated calcifications but this is a chronic finding and also seen on prior. Electronically signed by: Oneal Silva MD (08/21/2020 4:19 AM) [id number] Course & Med Decision Making: Course & Med Decision Making Tachycardic and hypertensive on arrival otherwise VSS. HPI and PE concerning for viral syndrome vs. gastroenteritis vs other ER workup non-concerning for emergent/surgical findings. Reviewed diagnoses of PUI Covid, UTI, Trich, and prolonged QT I reviewed case with hospitalist at length and discussed need for admission as patient had not responded to ER intervention provided, they accepted patient under their care I updated patient on proposed plan of care that included hospital admission and she was amenable, all questions and concerns addressed prior to admission This patient required critical care. Due to the fact that the patient required a significant amount of one on one physician patient contact time, ordering and review of studies, arranging urgent treatment with development of a management plan, evaluation of patients response to treatment with frequent reassessments, and discussions with other providers this patient required critical care time in excess 45mins Critical care time was indicated due to the inherent instability and/or potential for instability in this patient. The critical care time that is allocated to this patient is above and beyond any time spent on any other billable procedures performed on this patient. Merrill Disclaimer: Merrill Disclaimer: This electronic medical record was generated, in whole or in part, using a voice recognition dictation system. Departure Departure Impression: Primary Impression: Person under investigation for COVID-19 Additional Impressions: UTI (urinary tract infection) Infection due to trichomonas vaginalis Prolonged QT interval ECG abnormality Disposition: ADMITTED INPATIENT Admitting Physician: JAMEE (DR DIEZ) Condition: STABLE Referrals: VERNA CARRIZALES D.O. (PCP) Scripts Levothyroxine Sodium (LEVOTHYROXINE SODIUM) 137 Mcg Tablet 137 MCG PO DAILY06 for hypothyroid for 90 Days, #90 TAB Prov: JOBY PEREZ III, DO 08/23/20 JOHN TOLBERT DO August 21, 2020 03:08
[2020-08-21 03:19] LABS: BILIRUBIN,URINE NEGATIVE (NEG); CLARITY,URINE CLEAR; COLOR,URINE YELLOW; NITRITE,URINE NEGATIVE (NEG); PH,URINE 6.5 (<5.0-8.0); PROTEIN,URINE >=300 mg/dL (NEG-TRACE); UROBILINOGEN,URINE 0.2 mg/dL (0.2 mg/dL)
[2020-08-21 03:33] LABS: BACTERIA,URINE FEW /HPF (0-FEW); RBC,URINE OCC /HPF (0-2); TRICHOMONAS,URINE PRESENT
[2020-08-21 03:41] LABS: BASO # 0.1 x10^3/uL (0.0-0.2); BASO % 1 % (0-3); EOS # 0.1 x10^3/uL (0.0-0.7); EOS % 1 % (0-3); HEMATOCRIT 33.1 % (36.0-47.0); HEMOGLOBIN 10.9 g/dL (12.0-15.5); LYMPH % 13 % (24-48); MEAN CORPUSCULAR HEMOGLOBIN 28 pg (25-35); MEAN CORPUSCULAR HGB CONC 33 g/dL (31-37); MEAN CORPUSCULAR VOLUME 87 fL (79-100); MONO # 0.6 x10^3/uL (0.0-1.1); MONO % 4 % (0-9); NEUT # 13.3 x10^3/uL (1.8-7.7); NEUT % 82 % (31-73); PLATELET COUNT 271 x10^3/uL (140-400); RED BLOOD COUNT 3.82 x10^6/uL (3.50-5.40); RED CELL DISTRIBUTION WIDTH 15.9 % (11.5-14.5); WHITE BLOOD COUNT 16.2 x10^3/uL (4.0-11.0)
[2020-08-21 03:51] LABS: CALCIUM 8.5 mg/dL (8.5-10.1)
[2020-08-21] MEDS ORDERED: IV NORMAL SALINE 1000ML BAG 1,000 ML IV ONE (04:00)
[2020-08-21] MEDS ORDERED: cefTRIAXone IV Push 1 GM VIAL. IVP ONE (04:00)
[2020-08-21 04:05] LABS: ALBUMIN 3.2 g/dL (3.4-5.0); ALBUMIN/GLOBULIN RATIO 0.8 (1.0-1.7); TOTAL BILIRUBIN 0.5 mg/dL (0.2-1.0); TOTAL PROTEIN 7.3 g/dL (6.4-8.2)
[2020-08-21 04:14] LABS: % EOS 1 % (0-5); % LYMPHS 8 % (24-48); % MONOS 1 % (0-10); % SEGS 90 % (35-66); PLT ESTIMATE ADEQUATE (ADEQUATE)
[2020-08-21 04:15] LABS: HYPOCHROMIA SLIGHT; OVALOCYTES OCC
[2020-08-21] MEDS ORDERED: cloNIDine HCL 0.1 MG TABLET PO ONE (04:15)
--- NOTE | 2020-08-21 04:22 | RAD ---
INDICATION: Reason: shob / Spl. Instructions: / History: COMPARISON: March 2019 FINDINGS: Single view of chest obtained. Cardiomediastinal silhouette is prominent in size but similar to prior. There is repeat demonstration of opacity at the right upper chest but this was also present on prior. There are some calcified gra nulomas as well. A definite new region of consolidation is not seen IMPRESSION: * No definite new region of consolidation. Repeat demonstration of focal opacity at the right upper chest with associated calcifications but this is a chronic finding and also seen on prior. Electronically signed by: Oneal Silva MD (08/21/2020 4:19 AM) [id number]
[2020-08-21] MEDS ORDERED: ACETAMINOPHEN 325 MG TABLET. PO PRN ×2 (04:45→08:30)
--- NOTE | 2020-08-21 06:01 | EKG ---
[facility] [address] [place] [address] Test Date: 2020-08-21 Test Time: 03:15:20 Pat Name: JEFF GREGORY Department: Room: Gender: F Lead Software Developer: : [id number] Requested By: JOHN TOLBERT Order Number: [id number] Reading MD: Measurements Intervals [place] Rate: 94 P: 49 IN: 120 QRS: 31 QRSD: 76 T: 154 QT: 404 QTc: 511 Interpretive Statements SINUS RHYTHM LEFT ATRIAL ABNORMALITY LVH WITH REPOLARIZATION ABNORMALITY PROLONGED QT ABNORMAL ECG RI6.02 No previous ECG available for comparison
[2020-08-21 08:13] VITALS: BP 168/72
--- NOTE | 2020-08-21 08:25 | PDOC1 ---
History and Physical Date of Admission Date of Admission DATE: 08/21/20 TIME: 08:18 Identification/Chief Complaint Chief Complaint Vomiting Source Source: Chart review, Patient History of Present Illness History of Present Illness Ms Lee is a 63-year-old female with underlying history of hypertension, diabetes, metastatic breast cancer status post mastectomy, anxiety, peripheral neuropathy who presents to the emergency department with complaints of multiple bouts of emesis, 10+. This was preceded by rhinitis and URI-like symptoms 2 days prior to presentation without known sick contacts or COVID-19 exposure, had both COVID-19 vaccine doses. Also c/o generalized fatigue, nausea, suprapubic pain and discomfort with urination. Ate fish approximately 15 hours prior to arrival, she was the only person to eat this. She also notes increased abdominal girth and constipation recently. No known fever, chest pain, shortness of breath, changes in motor or sensory function, no neurologic changes. Blood pressure 218/96 heart rate 108 on admission Chest radiograph with increased interstitial markings. Labs WBC 16.2, Hb 10.9, platelets 271, NA 145, K4, BUN 39, CR 3 with glucose 218, lactic acid 0.8, albumin 3.2, BNP 1443, troponins 0.026, urinalysis with large proteinuria and positive leukocyte esterase. EKG sinus tachycardia rate of 94 bpm with normal rhythm and intervals, LVH criteria, QT prolonged 511 unchanged from EKG 05/30/2019 Admitted for further care. Past Medical History Cardiovascular: HTN, Hyperlipidemia Pulmonary: Bronchitis, Pneumonia CENTRAL NERVOUS SYSTEM: Periperal neuropathy GI: Constipation, GI bleed Heme/Onc: Anemia NOS, Cancer Hepatobiliary: No pertinent hx Psych: Anxiety, Depression Musculoskeletal: low back pain Rheumatologic: No pertinent hx Infectious disease: No pertinent hx Renal/: Chronic renal insuff Endocrine: Diabetes, Hypothyroidism Past Surgical History Past Surgical History: Cataract Removal, Mastectomy, Total hip replacement, Tubal Ligation, Other Family History Family History: Diabetes Family History: Parent Social History Smoke: No ALCOHOL: none Drugs: None Current Problem List Problem List Problems Medical Problems: (1) ECG abnormality Status: Acute (2) Person under investigation for COVID-19 Status: Acute (3) Prolonged Q-T interval on ECG Status: Acute (4) Prolonged QT interval Status: Acute Current Medications Current Medications Current Medications Sodium Chloride 1,000 ml @ 0 mls/hr 1X ONCE IV Last administered on 08/21/20at 04:28; Start 08/21/20 at 04:00; Stop 08/21/20 at 04:01; Status DC Ceftriaxone Sodium (Rocephin) 1 gm 1X ONCE IVP Last administered on 08/21/20at 04:31; Start 08/21/20 at 04:00; Stop 08/21/20 at 04:01; Status DC Metronidazole 100 ml @ 100 mls/hr Q12HR IV Last administered on 08/21/20at 04:31; Start 08/21/20 at 04:07 Clonidine HCl (Catapres) 0.1 mg 1X ONCE PO ; Start 08/21/20 at 04:15; Stop 08/21/20 at 04:39; Status DC Acetaminophen (Tylenol) 650 mg PRN Q4HRS PRN PO FEVER > 100.3'F; Start 08/21/20 at 04:45; Stop 08/22/20 at 04:44 Active Scripts Active Orphenadrine Citrate 100 Mg Tablet.er 1 Tab PO BID PRN [place] 5-325 Tablet (Acetaminophen/Hydrocodone Bitart) 1 Each Tablet 1-2 Each PO PRN Q6HRS PRN as needed for pain Diclofenac Sodium 50 Mg Tablet.dr 1 Tab PO BID PRN Humalog (Insulin Lispro) 100 Unit/1 Ml Insuln.pen 3 Units SQ TIDAC 14 Days Dok (Docusate Sodium) 100 Mg Capsule 100 Mg PO PRN DAILY PRN 30 Days Lyrica (Pregabalin) 25 Mg Capsule 25 Mg PO HS 30 Days Catapres (Clonidine Hcl) 0.1 Mg Tablet 0.1 Mg PO TID 30 Days [place] 5-325 Tablet (Acetaminophen/Hydrocodone Bitart) 1 Each Tablet 1 Tab PO PRN Q6HRS PRN Proair Hfa Inhaler (Albuterol Sulfate) 8.5 Gm Hfa.aer.ad 2 Puff IH PRN Q4-6HRS PRN 21 Days Lantus Solostar (Insulin Glargine,Hum.rec.anlog) 100 Unit/1 Ml Insuln.pen 50 Units SQ QHS 30 Days Quetiapine Fumarate 25 Mg Tablet 25 Mg PO HS 30 Days Synthroid (Levothyroxine Sodium) 150 Mcg Tablet 150 Mcg PO DAILY07 30 Days [Pantoprazole] 40 MG Tablet.dr 40 Mg PO DAILYAC 30 Days Fish Oil 1,000 Mg Capsule (Harrison-3 Fatty Acids/Fish Oil) 1 Each Capsule 2,000 Mg PO BID 30 Days Atorvastatin Calcium 40 Mg Tablet 40 Mg PO QHS 30 Days Aspirin Ec (Aspirin) 81 Mg Tablet.dr 81 Mg PO DAILYWBKFT 120 Days Reported Vitamin D2 (Ergocalciferol (Vitamin D2)) 50,000 Unit Capsule 1 Tab PO WEEKLY Carvedilol 25 Mg Tablet 25 Mg PO BID Amlodipine Besylate 10 Mg Tablet 10 Mg PO DAILY Allergies Allergies: Coded Allergies: No Known Drug Allergies (Unverified , 12/30/15) ROS General: YES: Fatigue, Malaise; No: Chills, Night Sweats, Appetite, Other PSYCHOLOGICAL ROS: No: Anxiety, Behavioral Disorder, Concentration difficultie, Decreased libido, Depression, Disorientation, Hallucinations, Hostility, Irritablity, Memory difficulties, Mood Swings, Obsessive thoughts, Physical abuse, Sexual abuse, Sleep disturbances, Suicidal ideation, Other Eyes: No Blurry vision, No Decreased vision, No Double vision, No Dry eyes, No Excessive tearing, No Eye Pain, No Itchy Eyes, No Loss of vision, No Photophobia, No Scotomata, No Uses contacts, No Uses glasses, No Other HEENT: YES: Nasal congestion, Nasal discharge; No: Heacaches, Visual Changes, Hearing change, Oral lesions, Sinus pain, Sore Throat, Epistaxis, Sneezing, Snoring, Tinnitus, Vertigo, Vocal changes, Other ALLERGY AND IMMUNOLOGY: No: Hives, Insect Bite Sensitivity, Itchy/Watery Eyes, Nasal Congestion, Post Nasal Drip, Seasonal Allergies, Other Hematological and Lymphatic: No: Bleeding Problems, Blood Clots, Blood Transfusions, Brusing, Night Sweats, Pallor, Swollen Lymph Nodes, Other ENDOCRINE: No: Breast Changes, Galactorrhea, Hair Pattern Changes, Hot Flashes, Malaise/lethargy, Mood Swings, Palpitations, Polydipsia/polyuria, Skin Changes, Temperature Intolerance, Unexpected Weight Changes, Other Breast: No New/Changing Breast Lumps, No Nipple changes, No Nipple discharge, No Other Respiratory: No: Cough, Hemoptysis, Orthopnea, Pleuritic Pain, Shortness of breath, SOB with excertion, Sputum Changes, Stridor, Tachypnea, Wheezing, Other Cardiovascular: No Chest Pain, No Palpitations, No Orthopnea, No Paroxysmal Noc. Dyspnea, No Edema, No Lt Headedness, No Other Gastrointestinal: Yes Nausea, Yes Vomiting, Yes Abdominal Pain, Yes Constipation; No Diarrhea, No Melena, No Hematochezia, No Other Genitourinary: YES Dysuria, YES Frequency; No Incontinence, No Hematuria, No Retention, No Discharge, No Urgency, No Pain, No Flank Pain, No Other, No , No , No , No , No , No , No Musculoskeletal: No Gait Disturbance, No Joint Pain, No Joint Stiffness, No Joint Swelling, No Muscle Pain, No Muscular Weakness, No Pain In:, No Swelling In:, No Other Neurological: No Behavorial Changes, No Bowel/Bladder ControlChng, No Confusion, No Dizziness, No Gait Disturbance, No Headaches, No Impaired Coord/balance, No Memory Loss, No Numbness/Tingling, No Seizures, No Speech Problems, No Tremors, No Visual Changes, No Weakness, No Other Skin: No Dry Skin, No Eczema, No Hair Changes, No Lumps, No Mole Changes, No Mottling, No Nail Changes, No Pruritus, No Rash, No Skin Lesion Changes, No Other, No Acne Physical Exam General: Alert, Oriented X3, Cooperative, mild distress HEENT: Atraumatic, PERRLA, EOMI, Mucous membr. moist/pink Lungs: Clear to auscultation, Normal air movement Heart: S1S2, RRR, no thrills, no rubs, no gallops, no murmurs Abdomen: Other (LUQ tenderness and LLQ tenderness) Rectal Exam: not examined Extremities: No clubbing, No cyanosis, No edema, Normal pulses, No tenderness/swelling Skin: No rashes, No breakdown, No significant lesion Neuro: Normal gait, Normal speech, Strength at 5/5 X4 ext, Normal tone, Sensation intact, Cranial nerves 3-12 NL, Reflexes 2+ Psych/Mental Status: Other (Somewhat confused) Vitals Vitals Vital Signs Date Time Temp Pulse Resp B/P (MAP) Pulse Ox O2 Delivery O2 Flow Rate FiO2 08/21/20 08:13 97.9 72 18 168/72 (104) 98 Room Air 97.9 Labs Labs Laboratory Tests Test 08/21/20 03:10 08/21/20 03:30 Urine Collection Type Unknown Urine Color Yellow Urine Clarity Clear Urine pH 6.5 (<5.0-8.0) Urine Specific [place] 1.020 (1.000-1.030) Urine Protein >=300 mg/dL (NEG-TRACE) Urine Glucose (UA) 250 mg/dL (NEG) Urine Ketones (Stick) Negative mg/dL (NEG) Urine Blood Negative (NEG) Urine Nitrite Negative (NEG) Urine Bilirubin Negative (NEG) Urine Urobilinogen Dipstick 0.2 mg/dL (0.2 mg/dL) Urine Leukocyte Esterase Small (NEG) Urine RBC Occ /HPF (0-2) Urine WBC 11-20 /HPF (0-4) Urine Squamous Epithelial Cells Mod /LPF Urine Bacteria Few /HPF (0-FEW) Urine Mucus Slight /LPF Urine Trichomonas Present White Blood Count 16.2 x10^3/uL (4.0-11.0) Red Blood Count 3.82 x10^6/uL (3.50-5.40) Hemoglobin 10.9 g/dL (12.0-15.5) Hematocrit 33.1 % (36.0-47.0) Mean Corpuscular Volume 87 fL (79-100) Mean Corpuscular Hemoglobin 28 pg (25-35) Mean Corpuscular Hemoglobin Concent 33 g/dL (31-37) Red Cell Distribution Width 15.9 % (11.5-14.5) Platelet Count 271 x10^3/uL (140-400) Neutrophils (%) (Auto) 82 % (31-73) Lymphocytes (%) (Auto) 13 % (24-48) Monocytes (%) (Auto) 4 % (0-9) Eosinophils (%) (Auto) 1 % (0-3) Basophils (%) (Auto) 1 % (0-3) Neutrophils # (Auto) 13.3 x10^3/uL (1.8-7.7) Lymphocytes # (Auto) 2.0 x10^3/uL (1.0-4.8) Monocytes # (Auto) 0.6 x10^3/uL (0.0-1.1) Eosinophils # (Auto) 0.1 x10^3/uL (0.0-0.7) Basophils # (Auto) 0.1 x10^3/uL (0.0-0.2) Segmented Neutrophils % 90 % (35-66) Lymphocytes % 8 % (24-48) Monocytes % 1 % (0-10) Eosinophils % 1 % (0-5) Platelet Estimate Adequate (ADEQUATE) Hypochromasia Slight Ovalocytes Occ Crenated Cell Present Sodium Level 145 mmol/L (136-145) Potassium Level 4.0 mmol/L (3.5-5.1) Chloride Level 111 mmol/L (98-107) Carbon Dioxide Level 25 mmol/L (21-32) Anion Gap 9 (6-14) Blood Urea Nitrogen 39 mg/dL (7-20) Creatinine 3.0 mg/dL (0.6-1.0) Estimated GFR (Cockcroft-Gault) 19.0 BUN/Creatinine Ratio 13 (6-20) Glucose Level 218 mg/dL (70-99) Lactic Acid Level 0.8 mmol/L (0.4-2.0) Calcium Level 8.5 mg/dL (8.5-10.1) Total Bilirubin 0.5 mg/dL (0.2-1.0) Aspartate Amino Transf (AST/SGOT) 19 U/L (15-37) Alanine Aminotransferase (ALT/SGPT) 16 U/L (14-59) Alkaline Phosphatase 146 U/L (46-116) Troponin I Quantitative 0.026 ng/mL (0.000-0.055) OI-Gpj-S-Type Natriuretic Peptide 1443 pg/mL (0-124) Total Protein 7.3 g/dL (6.4-8.2) Albumin 3.2 g/dL (3.4-5.0) Albumin/Globulin Ratio 0.8 (1.0-1.7) Laboratory Tests Test 08/21/20 03:10 08/21/20 03:30 Urine Collection Type Unknown Urine Color Yellow Urine Clarity Clear Urine pH 6.5 (<5.0-8.0) Urine Specific [place] 1.020 (1.000-1.030) Urine Protein >=300 mg/dL (NEG-TRACE) Urine Glucose (UA) 250 mg/dL (NEG) Urine Ketones (Stick) Negative mg/dL (NEG) Urine Blood Negative (NEG) Urine Nitrite Negative (NEG) Urine Bilirubin Negative (NEG) Urine Urobilinogen Dipstick 0.2 mg/dL (0.2 mg/dL) Urine Leukocyte Esterase Small (NEG) Urine RBC Occ /HPF (0-2) Urine WBC 11-20 /HPF (0-4) Urine Squamous Epithelial Cells Mod /LPF Urine Bacteria Few /HPF (0-FEW) Urine Mucus Slight /LPF Urine Trichomonas Present White Blood Count 16.2 x10^3/uL (4.0-11.0) Red Blood Count 3.82 x10^6/uL (3.50-5.40) Hemoglobin 10.9 g/dL (12.0-15.5) Hematocrit 33.1 % (36.0-47.0) Mean Corpuscular Volume 87 fL (79-100) Mean Corpuscular Hemoglobin 28 pg (25-35) Mean Corpuscular Hemoglobin Concent 33 g/dL (31-37) Red Cell Distribution Width 15.9 % (11.5-14.5) Platelet Count 271 x10^3/uL (140-400) Neutrophils (%) (Auto) 82 % (31-73) Lymphocytes (%) (Auto) 13 % (24-48) Monocytes (%) (Auto) 4 % (0-9) Eosinophils (%) (Auto) 1 % (0-3) Basophils (%) (Auto) 1 % (0-3) Neutrophils # (Auto) 13.3 x10^3/uL (1.8-7.7) Lymphocytes # (Auto) 2.0 x10^3/uL (1.0-4.8) Monocytes # (Auto) 0.6 x10^3/uL (0.0-1.1) Eosinophils # (Auto) 0.1 x10^3/uL (0.0-0.7) Basophils # (Auto) 0.1 x10^3/uL (0.0-0.2) Segmented Neutrophils % 90 % (35-66) Lymphocytes % 8 % (24-48) Monocytes % 1 % (0-10) Eosinophils % 1 % (0-5) Platelet Estimate Adequate (ADEQUATE) Hypochromasia Slight Ovalocytes Occ Crenated Cell Present Sodium Level 145 mmol/L (136-145) Potassium Level 4.0 mmol/L (3.5-5.1) Chloride Level 111 mmol/L (98-107) Carbon Dioxide Level 25 mmol/L (21-32) Anion Gap 9 (6-14) Blood Urea Nitrogen 39 mg/dL (7-20) Creatinine 3.0 mg/dL (0.6-1.0) Estimated GFR (Cockcroft-Gault) 19.0 BUN/Creatinine Ratio 13 (6-20) Glucose Level 218 mg/dL (70-99) Lactic Acid Level 0.8 mmol/L (0.4-2.0) Calcium Level 8.5 mg/dL (8.5-10.1) Total Bilirubin 0.5 mg/dL (0.2-1.0) Aspartate Amino Transf (AST/SGOT) 19 U/L (15-37) Alanine Aminotransferase (ALT/SGPT) 16 U/L (14-59) Alkaline Phosphatase 146 U/L (46-116) Troponin I Quantitative 0.026 ng/mL (0.000-0.055) YK-Ahn-Z-Type Natriuretic Peptide 1443 pg/mL (0-124) Total Protein 7.3 g/dL (6.4-8.2) Albumin 3.2 g/dL (3.4-5.0) Albumin/Globulin Ratio 0.8 (1.0-1.7) Images Images Chest radiograph: Cardiomediastinal silhouette is prominent in size but similar to prior. There is repeat demonstration of opacity at the right upper chest but this was also p resent on prior. There are some calcified granulomas as well. A definite new region of consolidation is not seen IMPRESSION: * No definite new region of consolidation. Repeat demonstration of focal opacity at the right upper chest with associated calcifications but this is a chronic finding and also seen on prior. VTE Prophylaxis Ordered VTE Prophylaxis Devices: Yes VTE Pharmacological Prophylaxi: Yes Assessment/Plan Assessment/Plan A/P: Accelerated hypertension - will cont meds, prn hydralazine Tele, trend trops Unsteady gait - PT/OT. Reduce her sedating meds for renal insufficiency. May consult neuro if her symptoms continue Fall - PT for gait training Uncontrolled diabetes mellitus - basal bolus plus insulin regimen TOBIN on CKD - likely vasomotor nephropathy Anxiety - will cont meds, would favor alternative to benzos Peripheral neuropathy - diabetic in etiology, could be cause of her symptoms. Will reduce lyrica. Work with PT/OT Leukocytosis - with tachycardia was septic POA likely due to UTI, will cont empiric rocephin Constipation - will cont bowel regimen Diastolic CHF - seems to be chronic, will cont BB, cannot take QUIQUE/ARB due to renal insufficiency FEN - ADA diet PPX - heparin FULL CODE Dispo - inpatient for 2 midnights. Justifications for Admission Other Justification ZOEY GALLO MD August 21, 2020 08:25
[2020-08-21] MEDS ORDERED: ALBUTEROL SULFATE 2.5 MG/3 ML NEBU. NEB PRN (08:30)
[2020-08-21] MEDS ORDERED: ONDANSETRON PF 4 MG/2 ML VIAL. IVP PRN (08:30)
[2020-08-21] MEDS ORDERED: DICLOFENAC SODIUM 25 MG TABLET.DR PO PRN (08:45)
[2020-08-21] MEDS: CARVEDILOL 12.5 MG TABLET. PO SCH ×2 (09:54→16:09)
[2020-08-21] MEDS: DOCUSATE SODIUM 100 MG CAPSULE. PO PRN (09:55)
[2020-08-21] MEDS: PANTOPRAZOLE 40 MG TABLET.DR. PO SCH (09:55)
[2020-08-21] MEDS: OMEGA-3 FATTY ACIDS/FISH OIL 1,000 MG CAPSULE. PO SCH ×2 (09:55→20:41)
[2020-08-21] MEDS: ASPIRIN ENTERIC COATED 81 MG TABLET.DR. PO SCH (09:58)
[2020-08-21 11:14] VITALS: BP 187/58
[2020-08-21 11:45] VITALS: BP 143/44
[2020-08-21] MEDS ORDERED: PREG-9 PO (12:06)
[2020-08-21] MEDS ORDERED: CLON0.2T PO (12:06)
[2020-08-21] MEDS: INSULIN LISPRO 300 UNITS/3 ML VIAL. SQ SCH ×2 (12:34→17:02)
[2020-08-21] MEDS: HEPARIN for SUB-Q USE 5,000 UNIT/ML VIAL. SQ SCH ×2 (14:37→22:12)
[2020-08-21 15:06] VITALS: BP 153/45
[2020-08-21] MEDS: POLYETHYLENE GLYCOL 3350 17 GM PACKET. PO SCH (17:01)
[2020-08-21 19:00] VITALS: BP 173/66
[2020-08-21] MEDS: PREGABALIN 25 MG CAPSULE PO SCH (20:29)
[2020-08-21] MEDS: QUEtiapine 25 MG TABLET. PO SCH (20:30)
[2020-08-21] MEDS: ATORVASTATIN CALCIUM 40 MG TABLET. PO SCH (20:34)
[2020-08-21] MEDS: PSYLLIUM HUSK (SUGAR FREE) 1 PKT PACKET PO SCH (21:00)
[2020-08-21] MEDS ORDERED: INSULIN GLARGINE SYRINGE. SQ SCH (21:00)
[2020-08-21] MEDS: INSULIN GLARGINE SYRINGE. SQ SCH (22:39)
[2020-08-21] MEDS: cloNIDine HCL 0.2 MG TABLET PO SCH (22:54)
[2020-08-21 23:01] VITALS: BP 188/49
[2020-08-22] VITALS (7 sets, daily range): BP systolic 123–185; BP diastolic 35–124
[2020-08-22] MEDS: cefTRIAXone IV Push 1 GM VIAL. IVP SCH (05:43)
[2020-08-22] MEDS: LEVOTHYROXINE 137 MCG TABLET PO SCH (05:43)
[2020-08-22] MEDS: HEPARIN for SUB-Q USE 5,000 UNIT/ML VIAL. SQ SCH ×2 (05:56→12:04)
[2020-08-22] MEDS ORDERED: LEVOTHYROXINE 150 MCG TABLET PO SCH (07:00)
[2020-08-22 08:01] LABS: BASO # 0.1 x10^3/uL (0.0-0.2); BASO % 1 % (0-3); EOS # 0.2 x10^3/uL (0.0-0.7); EOS % 3 % (0-3); HEMATOCRIT 27.6 % (36.0-47.0); LYMPH # 3.1 x10^3/uL (1.0-4.8); LYMPH % 34 % (24-48); MEAN CORPUSCULAR HEMOGLOBIN 29 pg (25-35); MEAN CORPUSCULAR HGB CONC 33 g/dL (31-37); MEAN CORPUSCULAR VOLUME 88 fL (79-100); MONO # 0.5 x10^3/uL (0.0-1.1); MONO % 5 % (0-9); NEUT # 5.2 x10^3/uL (1.8-7.7); NEUT % 57 % (31-73); PLATELET COUNT 207 x10^3/uL (140-400); RED BLOOD COUNT 3.14 x10^6/uL (3.50-5.40); RED CELL DISTRIBUTION WIDTH 16.1 % (11.5-14.5); WHITE BLOOD COUNT 9.1 x10^3/uL (4.0-11.0)
[2020-08-22] MEDS: ASPIRIN ENTERIC COATED 81 MG TABLET.DR. PO SCH (08:37)
[2020-08-22] MEDS: CARVEDILOL 12.5 MG TABLET. PO SCH ×2 (08:38→17:07)
[2020-08-22] MEDS: PANTOPRAZOLE 40 MG TABLET.DR. PO SCH (08:38)
[2020-08-22] MEDS: cloNIDine HCL 0.2 MG TABLET PO SCH ×2 (08:38→21:00)
[2020-08-22] MEDS: DOCUSATE SODIUM 100 MG CAPSULE. PO PRN (08:38)
[2020-08-22] MEDS: amLODIPine BESYLATE 10 MG TABLET PO SCH (08:38)
[2020-08-22] MEDS: OMEGA-3 FATTY ACIDS/FISH OIL 1,000 MG CAPSULE. PO SCH ×2 (08:39→20:58)
[2020-08-22] MEDS: POLYETHYLENE GLYCOL 3350 17 GM PACKET. PO SCH (08:39)
[2020-08-22] MEDS: INSULIN LISPRO 300 UNITS/3 ML VIAL. SQ SCH ×3 (08:43→17:12)
[2020-08-22 08:44] LABS: CALCIUM 7.9 mg/dL (8.5-10.1); CREATININE 3.3 mg/dL (0.6-1.0); POTASSIUM 3.8 mmol/L (3.5-5.1)
--- NOTE | 2020-08-22 12:01 | PDOC ---
[employer]GRESS NOTE Date of Service DOS: DATE: 08/22/20 TIME: 12:01 Chief Complaint Chief Complaint Vomiting History of Present Illness History of Present Illness Pt was seen and examined DW RN ALYCE Drill Sergeant Chart Reviewed Ms Lee is a 63-year-old female with underlying history of hypertension, diabetes, metastatic breast cancer status post mastectomy, anxiety, peripheral neuropathy who presents to the emergency department with complaints of multiple bouts of emesis, 10+. This was preceded by rhinitis and URI-like symptoms 2 days prior to presentation without known sick contacts or COVID-19 exposure, had both COVID-19 vaccine doses. Also c/o generalized fatigue, nausea, suprapubic pain and discomfort with urination. Ate fish approximately 15 hours prior to arrival, she was the only person to eat this. She also notes increased abdominal girth and constipation recently. No known fever, chest pain, shortness of breath, changes in motor or sensory function, no neurologic changes. Blood pressure 218/96 heart rate 108 on admission Chest radiograph with increased interstitial markings. Labs WBC 16.2, Hb 10.9, platelets 271, NA 145, K4, BUN 39, CR 3 with glucose 218, lactic acid 0.8, albumin 3.2, BNP 1443, troponins 0.026, urinalysis with large proteinuria and positive leukocyte esterase. EKG sinus tachycardia rate of 94 bpm with normal rhythm and intervals, LVH criteria, QT prolonged 511 unchanged from EKG 05/30/2019 Admitted for further care. Vitals/I&O Vitals/I&O: Vital Signs Date Time Temp Pulse Resp B/P (MAP) Pulse Ox O2 Delivery O2 Flow Rate FiO2 08/22/20 08:38 72 170/50 08/22/20 07:00 97.5 17 95 Room Air 97.5 I & O 08/21/20 08/21/20 08/22/20 15:00 23:00 07:00 Intake Total 240 ml 200 ml Balance 240 ml 200 ml Physical Exam General: Alert, Oriented X3, Cooperative, No acute distress, mild distress Lungs: Clear, Wheezing Abdomen: Other (LUQ tenderness and LLQ tenderness) Extremities: No clubbing, No cyanosis, No edema, Normal pulses, No tenderness/swelling Skin: No rashes, No breakdown, No significant lesion Labs Labs: Laboratory Tests Test 08/21/20 16:44 08/21/20 19:24 08/21/20 21:30 08/22/20 07:10 Glucose (Fingerstick) 157 mg/dL (70-99) 155 mg/dL (70-99) Troponin I Quantitative < 0.017 ng/mL (0.000-0.055) < 0.017 ng/mL (0.000-0.055) White Blood Count 9.1 x10^3/uL (4.0-11.0) Red Blood Count 3.14 x10^6/uL (3.50-5.40) Hemoglobin 9.0 g/dL (12.0-15.5) Hematocrit 27.6 % (36.0-47.0) Mean Corpuscular Volume 88 fL (79-100) Mean Corpuscular Hemoglobin 29 pg (25-35) Mean Corpuscular Hemoglobin Concent 33 g/dL (31-37) Red Cell Distribution Width 16.1 % (11.5-14.5) Platelet Count 207 x10^3/uL (140-400) Neutrophils (%) (Auto) 57 % (31-73) Lymphocytes (%) (Auto) 34 % (24-48) Monocytes (%) (Auto) 5 % (0-9) Eosinophils (%) (Auto) 3 % (0-3) Basophils (%) (Auto) 1 % (0-3) Neutrophils # (Auto) 5.2 x10^3/uL (1.8-7.7) Lymphocytes # (Auto) 3.1 x10^3/uL (1.0-4.8) Monocytes # (Auto) 0.5 x10^3/uL (0.0-1.1) Eosinophils # (Auto) 0.2 x10^3/uL (0.0-0.7) Basophils # (Auto) 0.1 x10^3/uL (0.0-0.2) Sodium Level 146 mmol/L (136-145) Potassium Level 3.8 mmol/L (3.5-5.1) Chloride Level 111 mmol/L (98-107) Carbon Dioxide Level 24 mmol/L (21-32) Anion Gap 11 (6-14) Blood Urea Nitrogen 42 mg/dL (7-20) Creatinine 3.3 mg/dL (0.6-1.0) Estimated GFR (Cockcroft-Gault) 17.0 Glucose Level 187 mg/dL (70-99) Calcium Level 7.9 mg/dL (8.5-10.1) Test 08/22/20 07:48 08/22/20 11:11 Glucose (Fingerstick) 183 mg/dL (70-99) 143 mg/dL (70-99) Review of Systems Review of Systems: No weakness, no numbness or tingling on extremities, no acute changes in vision Assessment and Plan Assessmemt and Plan A/P: Accelerated hypertension - will cont meds, prn hydralazine Tele, trend trops Unsteady gait - PT/OT. Reduce her sedating meds for renal insufficiency. May consult neuro if her symptoms continue Fall - PT for gait training Uncontrolled diabetes mellitus - basal bolus plus insulin regimen TOBIN on CKD - likely vasomotor nephropathy Anxiety - will cont meds, would favor alternative to benzos Peripheral neuropathy - diabetic in etiology, could be cause of her symptoms. Will reduce lyrica. Work with PT/OT Leukocytosis - with tachycardia was septic POA likely due to UTI, will cont empiric rocephin Constipation - will cont bowel regimen Diastolic CHF - seems to be chronic, will cont BB, cannot take QUIQUE/ARB due to renal insufficiency Plan: Continue Flagyl and Rocephin Consult Cardiology (BUN 1400) Consult Nephrology (BUN 1400 Cr:3.0) Cardiac Monitoring DVT PPx Full Code Comment Review of Relevant I have reviewed the following items alisha (where applicable) has been applied. Medications: Current Medications Medications (Trade) Dose Ordered Sig/Kurt Route PRN Reason Start Time Stop Time Status Last Admin Dose Admin Amlodipine Besylate (Norvasc) 10 mg DAILY PO 08/22/20 09:00 08/22/20 08:38 Atorvastatin Calcium (Lipitor) 40 mg QHS PO 08/21/20 21:00 08/21/20 20:34 Pregabalin (Lyrica) 25 mg HS PO 08/21/20 21:00 08/21/20 20:29 Quetiapine Fumarate (SEROquel) 25 mg HS PO 08/21/20 21:00 08/21/20 20:30 Heparin Sodium (Porcine) (Heparin Sodium) 5,000 unit Q8HRS SQ 08/21/20 14:00 08/22/20 05:56 Levothyroxine Sodium (Synthroid) 137 mcg DAILY06 PO 08/22/20 06:00 08/22/20 05:43 Ceftriaxone Sodium (Rocephin) 1 gm Q24H IVP 08/22/20 06:00 08/22/20 05:43 Insulin Glargine (Lantus Syringe) 20 unit QHS SQ 08/21/20 21:00 08/21/20 22:39 Polyethylene Glycol (miraLAX PACKET) 17 gm DAILY PO 08/21/20 15:30 08/22/20 08:39 Clonidine HCl (Catapres) 0.2 mg BID PO 08/21/20 22:30 08/22/20 08:38 Justifications for Admission Other Justification JOBY PEREZ III DO August 22, 2020 12:01
[2020-08-22] MEDS: ATORVASTATIN CALCIUM 40 MG TABLET. PO SCH (20:58)
[2020-08-22] MEDS: LACTOBACILLUS RHAMNOSUS GG 1 CAPSULE. PO SCH (20:58)
[2020-08-22] MEDS: QUEtiapine 25 MG TABLET. PO SCH (20:58)
[2020-08-22] MEDS: PREGABALIN 25 MG CAPSULE PO SCH (21:03)
[2020-08-22] MEDS: PSYLLIUM HUSK (SUGAR FREE) 1 PKT PACKET PO SCH (21:03)
[2020-08-22] MEDS: INSULIN GLARGINE SYRINGE. SQ SCH (21:12)
[2020-08-23] MEDS: HEPARIN for SUB-Q USE 5,000 UNIT/ML VIAL. SQ SCH ×2 (00:47→07:37)
[2020-08-23 03:00] VITALS: BP 142/33
[2020-08-23 07:00] VITALS: BP 132/31
[2020-08-23] MEDS: LEVOTHYROXINE 137 MCG TABLET PO SCH (07:39)
[2020-08-23] MEDS: cefTRIAXone IV Push 1 GM VIAL. IVP SCH (07:44)
[2020-08-23] MEDS: INSULIN LISPRO 300 UNITS/3 ML VIAL. SQ SCH ×2 (08:00→11:57)
[2020-08-23] MEDS: LACTOBACILLUS RHAMNOSUS GG 1 CAPSULE. PO SCH (08:37)
[2020-08-23] MEDS: CARVEDILOL 12.5 MG TABLET. PO SCH (08:37)
[2020-08-23] MEDS: amLODIPine BESYLATE 10 MG TABLET PO SCH (08:37)
[2020-08-23] MEDS: ASPIRIN ENTERIC COATED 81 MG TABLET.DR. PO SCH (08:38)
[2020-08-23] MEDS: POLYETHYLENE GLYCOL 3350 17 GM PACKET. PO SCH (08:38)
[2020-08-23] MEDS: OMEGA-3 FATTY ACIDS/FISH OIL 1,000 MG CAPSULE. PO SCH (08:39)
[2020-08-23] MEDS: PANTOPRAZOLE 40 MG TABLET.DR. PO SCH (08:39)
[2020-08-23] MEDS: cloNIDine HCL 0.2 MG TABLET PO SCH (08:39)
[2020-08-23 11:00] VITALS: BP 160/47
[2020-08-23] MEDS ORDERED: LEVO137T3 PO (11:59)
--- NOTE | 2020-08-23 11:59 | PDOC ---
[employer] PROGRESS NOTE Date of Service DOS: DATE: 08/23/20 TIME: 11:55 Chief Complaint Chief Complaint Vomiting History of Present Illness History of Present Illness Ms Lee is a 63-year-old female with underlying history of hypertension, diabetes, metastatic breast cancer status post mastectomy, anxiety, peripheral neuropathy who presents to the emergency department with complaints of multiple bouts of emesis, 10+.This was preceded by rhinitis and URI-like symptoms 2 days prior to presentation without known sick contacts or COVID-19 exposure, had both COVID-19 vaccine doses.Also c/o generalized fatigue, nausea, suprapubic pain and discomfort with urination. Ate fish approximately 15 hours prior to arrival, she was the only person to eat this. She also notes increased abdominal girth and constipation recently. No known fever, chest pain, shortness of breath, changes in motor or sensory function, no neurologic changes.Blood pressure 218/96 heart rate 108 on admission. Chest radiograph with increased interstitial markings. Labs WBC 16.2, Hb 10.9, platelets 271, NA 145, K4, BUN 39, CR 3 with glucose 218, lactic acid 0.8, albumin 3.2, BNP 1443, troponins 0.026, urinalysis with large proteinuria and positive leukocyte esterase. EKG sinus tachycardia rate of 94 bpm with normal rhythm and intervals, LVH criteria, QT prolonged 511 unchanged from EKG 05/30/2019 Admitted for further care. 08/23/2020: Pt. was seen and examined at bedside. Case discussed with RN. Case discussed with community case manager. Chart was reviewed. Pt. had no acute overnight events. Had no new concerns or complaints. Pt states that they are feeling better. Vitals/I&O Vitals/I&O: Vital Signs Date Time Temp Pulse Resp B/P (MAP) Pulse Ox O2 Delivery O2 Flow Rate FiO2 08/23/20 11:00 98.1 64 18 160/47 (84) 96 Room Air 98.1 I & O 08/22/20 08/22/20 08/23/20 15:00 23:00 07:00 Intake Total 240 ml Output Total 0 ml 0 ml Balance 240 ml 0 ml Physical Exam General: Alert, Oriented X3, Cooperative, No acute distress, mild distress, Other (Pt.s mood is improved from yeserday) Lungs: Clear, Wheezing Abdomen: No tenderness, Other (LUQ tenderness and LLQ tenderness) Extremities: No clubbing, No cyanosis, No edema, Normal pulses, No tenderness/swelling Skin: No rashes, No breakdown, No significant lesion Labs Labs: Laboratory Tests Test 08/22/20 17:03 08/22/20 20:10 08/23/20 07:39 08/23/20 10:51 Glucose (Fingerstick) 154 mg/dL (70-99) 168 mg/dL (70-99) 153 mg/dL (70-99) 177 mg/dL (70-99) Review of Systems Review of Systems: No chest pain, SOB, acute vision changes, or headaches. Assessment and Plan Assessmemt and Plan Assessment: Accelerated hypertension - will cont meds, prn hydralazine Tele, trend trops Unsteady gait - PT/OT. Reduce her sedating meds for renal insufficiency. May consult neuro if her symptoms continue Fall - PT for gait training Uncontrolled diabetes mellitus - basal bolus plus insulin regimen TOBIN on CKD - likely vasomotor nephropathy Anxiety - will cont meds, would favor alternative to benzos Peripheral neuropathy - diabetic in etiology, could be cause of her symptoms. Will reduce lyrica. Work with PT/OT Leukocytosis - with tachycardia was septic POA likely due to UTI, will cont empiric rocephin Constipation - will cont bowel regimen Diastolic CHF - seems to be chronic, will cont BB, cannot take QUIQUE/ARB due to renal insufficiency Plan: Stop Flagyl and Rocephin (WBC 16.2 --> 9.0) Cardiac Monitoring Trend Labs (CBC/CMP) Home Medications DVT PPx Full Code Comment Review of Relevant I have reviewed the following items alisha (where applicable) has been applied. Medications: Current Medications Medications (Trade) Dose Ordered Sig/Kurt Route PRN Reason Start Time Stop Time Status Last Admin Dose Admin Lactobacillus Rhamnosus (Culturelle) 1 cap BID PO 08/22/20 21:00 08/23/20 08:37 Justifications for Admission Other Justification JOBY PEREZ III DO August 23, 2020 11:58
--- NOTE | 2020-08-23 12:26 | DS ---
DATE OF DISCHARGE: 08/23/2020 ADMISSION DIAGNOSES: Urinary tract infection, sepsis and Trichomonas. DISCHARGE DIAGNOSES: Resolving urinary tract infection, resolving sepsis, resolving Trichomonas, history of hypothyroidism, asthma, hyperlipidemia, hypertension, constipation, diabetes, gastroesophageal reflux disease, neuropathy, depression, anxiety. CONSULTS: None. PROCEDURES: None. HOSPITAL COURSE: The patient is a pleasant, middle-aged female, who presented with sepsis, was noted to have a UTI and Trichomonas in her urine. She was admitted. We gave her IV fluids, IV antibiotics. Over the past couple days, she returned to her baseline state. This morning, I saw and examined her. She is doing well. We plan to discharge to home. I spent 15 minutes. Discussed the patient's long-term goals of care, code status, pain management, etc. DISPOSITION: Home. ACTIVITY: As tolerated. DIET: Low sodium. MEDICATIONS: Please see the MRAD. Synthroid 137 a day, ProAir inhaler, amlodipine 10 a day, aspirin 81 a day, atorvastatin 40 a day, carvedilol 25 b.i.d., Catapres 0.1 p.o. t.i.d., p.r.n. diclofenac, p.r.n. docusate, vitamin D, Franklin 5/325 one q. 4 hours p.r.n. pain, Lantus insulin 50 at bedtime, Humalog insulin 3 units with meals, omega-3 fatty acid, Protonix 40 a day, Lyrica 25 at bedtime and 75 t.i.d. and then quetiapine 25 at bedtime. TOTAL TIME: 32 minutes. LORRIE/FRANCOISE DR: LORRIE/giancarlo TID: [id number]
--- NOTE | 2020-08-23 12:27 | DS ---
DATE OF DISCHARGE: 08/23/2020 ADMISSION DIAGNOSES: Urinary tract infection, sepsis and Trichomonas and possible COVID-19. DISCHARGE DIAGNOSES: Resolving urinary tract infection, resolving sepsis, resolving Trichomonas, history of hypertension. Dictation Ends Here. MAYLIN DR: Jean Claude TID: [id number]
--- NOTE | 2020-08-23 13:10 | NUR ---
Discharge Note: JEFF GREGORY6 [facility] Discharge instructions and discharge home medications reviewed with Patient and a copy given. All questions have been answered and understanding verbalized. The following instructions and handouts were given: discharge instructions, education and follow up recommendations. Discontinued lines and drains: Peripheral IV intact. Patient discharged to Home or Self Care with Family Member via Wheelchair
== END 2020-08-23 13:10 | disposition home or self-care (01) ==
LOC: ER 02:45 → 6 SOUTH 05:09 → INTOOBSV 05:09
PROVIDERS: ADMIT Internal Medicine; ATTEND Internal Medicine
DX: A41.9 Sepsis, unspecified organism (principal); Z20.822 Contact with and (suspected) exposure to COVID-19; N17.9 Acute kidney failure, unspecified; I13.0 Hypertensive heart and chronic kidney disease with heart failure and stage 1 through stage 4 chronic kidney disease, or unspecified chronic kidney disease; I50.30 Unspecified diastolic (congestive) heart failure; N18.9 Chronic kidney disease, unspecified; E11.22 Type 2 diabetes mellitus with diabetic chronic kidney disease; N39.0 Urinary tract infection, site not specified; A59.01 Trichomonal vulvovaginitis; R26.9 Unspecified abnormalities of gait and mobility; I45.81 Long QT syndrome; K21.9 Gastro-esophageal reflux disease without esophagitis; F32.9 Major depressive disorder, single episode, unspecified; F41.9 Anxiety disorder, unspecified; G62.9 Polyneuropathy, unspecified; D72.829 Elevated white blood cell count, unspecified; K59.00 Constipation, unspecified; E78.5 Hyperlipidemia, unspecified; E03.9 Hypothyroidism, unspecified; Z90.11 Acquired absence of right breast and nipple; Z85.3 Personal history of malignant neoplasm of breast; Z98.49 Cataract extraction status, unspecified eye; Z98.51 Tubal ligation status; Z91.81 History of falling; Z79.4 Long term (current) use of insulin; Z79.82 Long term (current) use of aspirin; Z96.641 Presence of right artificial hip joint; Z98.890 Other specified postprocedural states
CPT/HCPCS: 36415; 71045; 80048; 80053; 81001; 82962; 83605; 83880; 84484; 85007; 85025; 87040; 87086; 93005; 94640; 96365; 96366; 96372; 96375; 96376; 97161; 97166; 97535; 99291; G0378; J0696; J1644; J1815; J2405; J3490; J7030; U0003; U0005; 96374; G0379; 99285-25

== ENCOUNTER 2020-11-01 14:27 | Emergency (ER) | payer MEDICARE ==
[~2020-11-01] VITALS: Ht 160 cm; Wt 85.0 kg
[~2020-11-01 14:27] MED LIST changes: +CLON0.2T PO; +LEVO137T3 PO; +PREG-9 PO
--- NOTE | 2020-11-01 16:55 | RAD ---
EXAM: CHEST 1 VIEW History: Shortness of breath COMPARISON: 08/21/2020 TECHNIQUE: Single portable radiograph of the chest FINDINGS: Mild cardiomegaly. Chronic focal opacification with calcification in the right upper lobe of the lung similar to prior exam. The costophrenic sulci are clear and well demarcated. IMPRESSION: No radiographic evidence of an acute cardiopulmonary process. Electronically signed by: Amrit Montanez MD (11/01/2020 4:53 PM) [id number]
--- NOTE | 2020-11-01 17:56 | ED.ADGEN ---
Past Medical History Past Medical History: Cancer, Diabetes-Type II, Hypertension, Hypothyroid, Other Additional Past Medical Histor: neuropathy, R breast cancer Past Surgical History: Cancer Surgery, Lumbar Laminectomy, Tubal ligation, Other Additional Past Surgical Histo: right mastectomy, back surgery, right hip, L4- L5 surgery Smoking Status: Never Smoker Alcohol Use: None Drug Use: None General Adult EDM: Chief Complaint: COUGH HPI: HPI: Patient is a 65-year-old female who presents to the emergency room complaining of nausea, cough, congestion, body aches, headaches that started 8 days prior to arrival. Patient states that she spent Fourth of October with family and that there are several other family members who are also ill. She states that she is unsure what they have. She did get her COVID-19 shots. She denies any kind of abdominal pain or chest pain. She does have some diffuse aching throughout her body. Her headache is dull in nature and intermittent. She has been taking cough medicine and Tessalon at home with minimal relief. Review of Systems: Review of Systems: Complete ROS is negative unless otherwise documented in HPI Current Medications: Current Medications Medications (Trade) Dose Ordered Sig/Kurt Start Time Stop Time Status Last Admin Dose Admin Ondansetron HCl (Zofran) 4 mg 1X ONCE 11/01/20 18:15 11/01/20 18:45 DC Sodium Chloride 1,000 ml @ 1,000 mls/hr 1X ONCE 11/01/20 18:15 11/01/20 19:14 DC Allergies: Allergies: Allergies Coded Allergies Type Severity Reaction Last Updated Verified No Known Drug Allergies 12/30/15 No Physical Exam: PE: General: Awake, alert, NAD. Well Nourished, well hydrated. Cooperative HEENT: Atraumatic, EOMI, PERRL, airway patent, moist oral mucosa Neck: Supple, trachea midline Respiratory: CTA bilaterally, normal effort, no wheezing/crackles CV: RRR, no murmur, cap refill <2 GI: Soft, nondistended, nontender, no masses MSK: No obvious deformities Skin: Warm, dry, intact Neuro: A&O x3, speech NL, sensory and motor grossly intact, no focal deficits Psych: Normal affect, normal mood, not suicidal or homicidal Current Patient Data: Labs: Laboratory Tests Test 11/01/20 17:55 11/01/20 18:12 White Blood Count 10.8 x10^3/uL (4.0-11.0) Red Blood Count 3.53 x10^6/uL (3.50-5.40) Hemoglobin 10.1 g/dL (12.0-15.5) L Hematocrit 31.1 % (36.0-47.0) L Mean Corpuscular Volume 88 fL (79-100) Mean Corpuscular Hemoglobin 29 pg (25-35) Mean Corpuscular Hemoglobin Concent 33 g/dL (31-37) Red Cell Distribution Width 15.4 % (11.5-14.5) H Platelet Count 247 x10^3/uL (140-400) Neutrophils (%) (Auto) 66 % (31-73) Lymphocytes (%) (Auto) 25 % (24-48) Monocytes (%) (Auto) 7 % (0-9) Eosinophils (%) (Auto) 1 % (0-3) Basophils (%) (Auto) 1 % (0-3) Neutrophils # (Auto) 7.2 x10^3/uL (1.8-7.7) Lymphocytes # (Auto) 2.8 x10^3/uL (1.0-4.8) Monocytes # (Auto) 0.7 x10^3/uL (0.0-1.1) Eosinophils # (Auto) 0.1 x10^3/uL (0.0-0.7) Basophils # (Auto) 0.1 x10^3/uL (0.0-0.2) Sodium Level 143 mmol/L (136-145) Potassium Level 4.9 mmol/L (3.5-5.1) Chloride Level 107 mmol/L (98-107) Carbon Dioxide Level 26 mmol/L (21-32) Anion Gap 10 (6-14) Blood Urea Nitrogen 48 mg/dL (7-20) H Creatinine 3.7 mg/dL (0.6-1.0) H Estimated GFR (Cockcroft-Gault) 14.8 BUN/Creatinine Ratio 13 (6-20) Glucose Level 135 mg/dL (70-99) H Calcium Level 8.4 mg/dL (8.5-10.1) L Total Bilirubin 0.3 mg/dL (0.2-1.0) Aspartate Amino Transferase (AST) 14 U/L (15-37) L Alanine Aminotransferase (ALT) 12 U/L (14-59) L Alkaline Phosphatase 122 U/L (46-116) H Total Protein 6.8 g/dL (6.4-8.2) Albumin 2.9 g/dL (3.4-5.0) L Albumin/Globulin Ratio 0.7 (1.0-1.7) L Urine Collection Type Unknown Urine Color Yellow Urine Clarity Clear Urine pH 6.0 (<5.0-8.0) Urine Specific Meredith 1.025 (1.000-1.030) Urine Protein >=300 mg/dL (NEG-TRACE) Urine Glucose (UA) 100 mg/dL (NEG) Urine Ketones (Stick) Trace mg/dL (NEG) Urine Blood Trace (NEG) Urine Nitrite Negative (NEG) Urine Bilirubin Small (NEG) Urine Urobilinogen Dipstick 1.0 mg/dL (0.2 mg/dL) Urine Leukocyte Esterase Negative (NEG) Urine RBC 1-2 /HPF (0-2) Urine WBC 5-10 /HPF (0-4) Urine Squamous Epithelial Cells Many /LPF Urine Bacteria Mod /HPF (0-FEW) Urine Hyaline Casts Moderate /HPF Urine Granular Casts Moderate /HPF Urine Waxy Casts Occasional /HPF Laboratory Tests 11/01/20 17:55 Laboratory Tests 11/01/20 17:55 Vital Signs: Vital Signs Date Time Temp Pulse Resp B/P (MAP) Pulse Ox O2 Delivery O2 Flow Rate FiO2 11/01/20 16:27 98.3 62 16 177/83 (84) 99 98.3 EKG: EKG: [] Heart Score: C/O Chest Pain: N/A Risk Factors: Risk Factors: DM, Current or recent (<one month) smoker, HTN, HLP, family history of CAD, obesity. Risk Scores: Score 0 - 3: 2.5% MACE over next 6 weeks - Discharge Home Score 4 - 6: 20.3% MACE over next 6 weeks - Admit for Clinical Observation Score 7 - 10: 72.7% MACE over next 6 weeks - Early Invasive Strategies Radiology/Procedures: Radiology/Procedures: [] Impression: History: Shortness of breath COMPARISON: 08/21/2020 TECHNIQUE: Single portable radiograph of the chest FINDINGS: Mild cardiomegaly. Chronic focal opacification with calcification in the right upper lobe of the lung similar to prior exam. The costophrenic sulci are clear and well demarcated. IMPRESSION: No radiographic evidence of an acute cardiopulmonary process. Electronically signed by: Amrit Montanez MD (11/01/2020 4:53 PM) [id number] Course & Med Decision Making: Course & Med Decision Making Pertinent Labs and Imaging studies reviewed. (See chart for details) Patient is a 65-year-old female who presents to the emergency room with URI symptoms. Patient is overall well-appearing. She states she has not had anything to eat over the last 2 to 3 days and is diabetic. She is concerned she may be dehydrated. Basic labs will be ordered. Chest x-ray appears unchanged. Patient discussed with Dr. Bazan who will assume care. Assumed care at shift change disposition pending labs radiologic imaging. Results reviewed and discussed with patient. Chest x-ray with no focal infiltrate or abnormalities. Patient's lab work seems to be at baseline. Patient noted to have a creatinine of 3.7--you have previous labs creatinine in the 2-3 range. Discussed creatinine with patient she states she is scheduled to see a doctor about dialysis. Patient reviewed her labs at [facility] recent creatinine 6.3. Will prescribe patient Zofran. Patient is requesting something for pain for chronic arthritis in her left shoulder. Will prescribe patient Ultram.. Merrill Disclaimer: Merrill Disclaimer: This electronic medical record was generated, in whole or in part, using a voice recognition dictation system. Departure Departure Impression: Primary Impression: Upper respiratory disease Additional Impression: Arm pain Disposition: HOME / SELF CARE / HOMELESS Condition: STABLE Referrals: VERNA CARRIZALES D.O. (PCP) Patient Instructions: Arthritis, Nonspecific, Viral Syndrome Scripts Ondansetron Hcl (ZOFRAN) 4 Mg Tablet 1 TAB PO Q6HRS, #20 TAB Prov: YAMILE BAZAN I DO 11/01/20 Tramadol Hcl (ULTRAM) 50 Mg Tablet 1 TAB PO PRN Q6HRS PRN for pain MDD 4 Tablet(s) for 7 Days, #28 TAB 0 Refills Prov: YAMILE BAZAN DO 11/01/20 Problem Qualifiers ANN PATEL MD Nov 01, 2020 17:56 YAMILE BAZAN I DO Nov 01, 2020 19:19
[2020-11-01 18:02] LABS: BASO # 0.1 x10^3/uL (0.0-0.2); BASO % 1 % (0-3); EOS # 0.1 x10^3/uL (0.0-0.7); EOS % 1 % (0-3); HEMATOCRIT 31.1 % (36.0-47.0); HEMOGLOBIN 10.1 g/dL (12.0-15.5); LYMPH # 2.8 x10^3/uL (1.0-4.8); LYMPH % 25 % (24-48); MEAN CORPUSCULAR HEMOGLOBIN 29 pg (25-35); MEAN CORPUSCULAR HGB CONC 33 g/dL (31-37); MEAN CORPUSCULAR VOLUME 88 fL (79-100); MONO # 0.7 x10^3/uL (0.0-1.1); MONO % 7 % (0-9); NEUT # 7.2 x10^3/uL (1.8-7.7); NEUT % 66 % (31-73); PLATELET COUNT 247 x10^3/uL (140-400); RED BLOOD COUNT 3.53 x10^6/uL (3.50-5.40); RED CELL DISTRIBUTION WIDTH 15.4 % (11.5-14.5); WHITE BLOOD COUNT 10.8 x10^3/uL (4.0-11.0)
[2020-11-01 18:15] LABS: CALCIUM 8.4 mg/dL (8.5-10.1); CREATININE 3.7 mg/dL (0.6-1.0); GFR 14.8; POTASSIUM 4.9 mmol/L (3.5-5.1)
[2020-11-01] MEDS ORDERED: IV NORMAL SALINE 1000ML BAG 1,000 ML IV ONE (18:15)
[2020-11-01] MEDS ORDERED: ONDANSETRON PF 4 MG/2 ML VIAL. IVP ONE (18:15)
[2020-11-01 18:22] LABS: ALBUMIN 2.9 g/dL (3.4-5.0); ALBUMIN/GLOBULIN RATIO 0.7 (1.0-1.7); TOTAL BILIRUBIN 0.3 mg/dL (0.2-1.0); TOTAL PROTEIN 6.8 g/dL (6.4-8.2)
[2020-11-01 18:39] LABS: BILIRUBIN,URINE SMALL (NEG); CLARITY,URINE CLEAR; COLOR,URINE YELLOW; NITRITE,URINE NEGATIVE (NEG); PROTEIN,URINE >=300 mg/dL (NEG-TRACE)
[2020-11-01 18:50] LABS: GRANULAR CASTS,URINE MODERATE /HPF; HYALINE CASTS, URINE MODERATE /HPF; WAXY CASTS,URINE OCCASIONAL /HPF
[2020-11-01 18:51] VITALS: BP 183/84
[2020-11-01 18:51] LABS: BACTERIA,URINE MOD /HPF (0-FEW)
[2020-11-01] MEDS ORDERED: TRAM-48 PO (19:19)
[2020-11-01] MEDS ORDERED: ONDA4TAB7 PO (19:19)
== END 2020-11-01 19:35 | disposition home or self-care (01) ==
LOC: ER 14:27
DX: J39.9 Disease of upper respiratory tract, unspecified (principal); M79.602 Pain in left arm; R06.02 Shortness of breath; E11.40 Type 2 diabetes mellitus with diabetic neuropathy, unspecified; I10 Essential (primary) hypertension; E03.9 Hypothyroidism, unspecified; Z98.51 Tubal ligation status; Z98.890 Other specified postprocedural states
CPT/HCPCS: 36415; 71045; 80053; 81001; 85025; 99285-25